=== PATIENT | female | born 1990 | race African-American/Black ===

== ENCOUNTER 2021-09-05 06:34 | Inpatient (IN) | payer BC, SELFPAY ==
[2021-09-05] VITALS (11 sets, daily range): BP systolic 124–151; BP diastolic 88–127; PULSE 114–148; RESP 28–35; TEMP 35.9–37.9; O2SAT 98–100; BMI 33.2
--- NOTE | ~2021-09-05 | CT_ITS ---
EXAMINATION: CT chest abdomen pelvis wo con DATE: 09/07/2021 11:24 CDT INDICATION: Gluteal abscess. TECHNIQUE: Computed tomography (CT) of the chest, abdomen, and pelvis was performed without intraveno us contrast. The dose-length product was 1854.47 mGy-cm. Automated exposure control and iterative rec onstruction technique were employed. COMPARISON: CT dated 08/26/2021 FINDINGS: CHEST CT: No thoracic lymphadenopathy. Heart size normal. No significant pleural or pericardial effusion. Mercedes l caliber aorta. There is a subcutaneous injection site left lower anterior abdominal wall. No endobr onchial lesions. No focal airspace consolidation. No suspicious pulmonary nodules or masses. ABDOMEN/PELVIS CT: There is heterogeneous appearance to both kidneys which appear enlarged, suspicious for pyelonephriti s. There are multiple areas of peripheral high density in both kidneys. The liver, spleen, pancreas, adrenal glands are unremarkable for noncontrast CT. Small amount of free fluid in the pelvis, likely physiologic. There is a left gluteal fluid collection measuring 7.7 x 2.7 x 8.6 cm, suspicious for abscess. IMPRESSION: 1. Persistent left medial gluteal abscess measuring 7.7 x 2.7 x 8.6 cm. 2: Heterogeneous appearance to both kidneys, suspicious for pyelonephritis P Reviewed, dictated and finalized at location A.
--- NOTE | ~2021-09-05 | XR_ITS ---
EXAMINATION: XR chest 1V portable EXAM DATE: 09/05/2021 07:25 INDICATION: Dyspnea and tachycardia, HX OF HTN/Diabetes. TECHNIQUE: Portable AP frontal chest x-ray was obtained. There is no prior study for comparison. FINDINGS: The lungs are clear. There are no pleural effusions. The cardiomediastinal silhouette is within normal limits. There is no pneumothorax suspected. The bones and soft tissues are unremarkab le. IMPRESSION: No acute cardiopulmonary findings. Reviewed, dictated and finalized at location A.
--- NOTE | ~2021-09-05 | CT_ITS ---
EXAMINATION: CTA chest PE abdomen pel DATE: 09/05/2021 08:47 INDICATION: Shortness of breath, tachycardia. Low abdominal pain. Gluteal abscess. TECHNIQUE: Computed tomography angiography (CTA) of the chest, abdomen and pelvis was performed with 100 mL Omnipaque-350 intravenous contrast timed to evaluate the pulmonary arteries. Coronal maximum i ntensity projection 3D-reconstructions were created by the technologist. Automated exposure control a nd iterative reconstruction technique were employed. Exam dose: 2435.93 mGy-cm total exam DLP. COMPARISON: 09/05/2021 portable AP chest FINDINGS: The patient refused to place arms above head, resulting in suboptimal imaging of the chest and abdomen. Due to artifact from the upper extremities and motion artifact, there is suboptimal visualization of the pulmonary arteries, particularly peripherally. No main pulmonary artery or lobar or proximal segm ental pulmonary artery embolism is evident on this limited examination. No thoracic aortic aneurysm or dissection is detected. Normal heart size. No pericardial or pleural e ffusion. No pulmonary infiltrate or consolidation or pulmonary mass lesion is evident. The gallbladder is distended. No gallbladder wall thickening or pericholecystic fluid or fat strandin g. No bile duct dilatation. No hepatic, splenic, pancreatic, and adrenal or renal space-occupying mas s lesion is detected. There are some patchy areas of diminished contrast enhancement of both kidneys, suggesting possible b ilateral pyelonephritis. Recommend clinical correlation The urinary bladder is unremarkable. No urinary tract calculus or hydroureteronephrosis. Approximately 3 cm right ovarian cyst. The uterus and adnexal areas are otherwise unremarkable. Normal caliber of the abdominal aorta. No intraperitoneal or retroperitoneal or pelvic mass lesion or adenopathy or ascites is noted. Normal appendix. No bowel obstruction, bowel wall thickening, pneumatosis or intraperitoneal free air . Up to 2.8 cm wide 6.5 cm AP dimension abscess in the medial left gluteal area. Included skeletal structures are unremarkable. IMPRESSION: No apparent central pulmonary embolism; limited evaluation of the pulmonary arteries due to superimposed upper extremities and motion artifact Medial left gluteal abscess Patchy contrast enhancement of both kidneys suggesting possible bilateral pyelonephritis; recommend c linical correlation 3 cm right ovarian cyst Normal appendix Reviewed, dictated and finalized at Location [facility]. Reviewed, dictated and finalized at location B. IMPRESSION: No apparent central pulmonary embolism; limited evaluation of the p ulmonary arteries due to superimposed upper extremities and motion artifact Medial left gluteal abscess Patchy contrast enhancement of both kidneys suggesting possible bilateral pyelo nephritis; recommend clinical correlation 3 cm right ovarian cyst Normal appendix
--- NOTE | 2021-09-05 06:58 | ECG_ITS ---
Measurements Intervals [place] Rate: 142 P: 67 ND: 143 QRS: 15 QRSD: 78 T: 48 QT: 328 QTc: 504 Interpretive Statements SINUS TACHYCARDIA BORDERLINE ST-T WAVE ABNORMALITY- ANTEROLAT/INF LEADS BASELINE WANDER- II, III, V1-V2 ABNORMAL ECG Electronically Signed On 09-05-2021 8:34:21 CDT by Douglas Rai D.O.
[2021-09-05 07:04] LABS: Glucose Point of Care 487 mg/dl (65-105)
[2021-09-05 07:09] LABS: Basophils Absolute Auto 0.1 K/mm3 (0.0-0.1); Basophils Percent Auto 0.6 % (0.2-1.2); Hematocrit 45.1 % (37.0-47.0); Hemoglobin 14.2 g/dL (12.0-15.0); Immature Granulocyte Absolute 0.31 K/mm3 (0.00-0.031); Immature Granulocyte Percent A 1.5 % (0-0.5); Lymphocytes Absolute Auto 2.66 K/mm3 (0.9-3.2); Lymphocytes Percent Auto 12.8 % (18.3-44.2); Mean Corpuscular HGB Conc 31.5 g/dl (32-36); Mean Corpuscular Hemoglobin 27.7 pg (26-34); Mean Corpuscular Volume 88.1 fl (80-100); Mean Platelet Volume 11.1 fl (7.4-10.4); Monocytes Absolute Auto 1.8 K/mm3 (0.1-0.6); Monocytes Percent Auto 8.7 % (2.6-8.5); Neutrophils Absolute Auto 15.9 K/mm3 (1.3-6.7); Neutrophils Percent Auto 76.4 % (45.5-73.1); Platelet Count Result 563 k/mm3 (150-375); Red Blood Count 5.12 M/mm3 (4.2-5.4); Red Cell Distribution Width 14.1 % (11.5-14.5); White Blood Count 20.8 K/mm3 (4.5-10.0)
[2021-09-05] MEDS: SODIUM CHLORIDE 0.9% IV 1,000 ML 999 ML IV CONT ×4 (07:23→11:03)
[2021-09-05 07:24] LABS: Alanine Aminotransferase 15 U/L (4-35); Albumin Level 4.8 g/dL (3.5-5.1); Alkaline Phosphatase 211 U/L (38-126); Aspartate Amino Transferase 19 U/L (14-36); Bilirubin,Total 0.4 mg/dL (0.2-1.3); Blood Urea Nitrogen 11 mg/dL (7-17); Calcium 9.9 mg/dL (8.4-10.2); Carbon Dioxide < 5 mmol/L (22-30); Chloride 102 mmol/L (98-107); Estimated CRCL calculation 75 ml/min; Estimated Glomerular Filt Rate > 60; Glucose 536 mg/dL (65-110); Potassium 4.6 mmol/L (3.4-5.0); Sodium 136 mmol/L (137-145)
[2021-09-05 07:28] LABS: Alveolar/Arterial O2 Gradient 429.2 mmHg; Base Excess ABG -29.6 mEq/l (+/-2.0); Fractional Inspired Oxygen 100 %; HCO3 ABG 1.8 mEq/l (22.0-26.0); Oxygen Content ABG 20.4 %vol (16.0-22.0); Oxygen Saturation ABG 99.2 % (95.0-100.0); Oxyhemoglobin 98.5 % THb (90.0-100.0); PO2 ABG 274.2 mmHg (80.0-100.0); PO2 FiO2 Ratio Arterial Blood 2.74 %; Total Hemoglobin 14.3 g/dL (12.0-18.0)
--- NOTE | 2021-09-05 07:28 | ED.SOB ---
HPI - SOB/Dyspnea General Chief Complaint: Shortness of Breath/Dyspnea Stated Complaint: dyspnea Time Seen by Provider: 09/05/21 06:52 Source: patient History of Present Illness HPI Narrative: Patient presents with shortness of breath. Reports she has been managing a boil on her left thigh for the past few days this morning she woke up and was really short of breath so she came to the ER for evaluation. She has not noted a fever, she reports she has been urinating more. She denies prior history of asthma or cardiac disease. She does report a history of diabetes. She has not noted cough. She does report diffuse chest tightness Related Data Allergies Allergy/AdvReac Type Severity Reaction Status Date / Time No Known Allergies Allergy Mild Verified 09/05/21 06:48 Review of Systems Review of Systems: CONSTITUTIONAL: Denies fever, chills, or sweats. EYES: Denies visual changes, redness, or discharge. ENT: Denies rhinorrhea, congestion, sore throat, or otalgia. CARDIOVASCULAR: Denies palpitations, or edema. RESPIRATORY: Denies cough GASTROINTESTINAL: Denies abdominal pain, nausea, vomiting, or diarrhea. GENITOURINARY: Denies dysuria or hematuria. SKIN: Denies rash or itching. MUSCULOSKELETAL: Denies back pain, joint pain, or myalgia. NEUROLOGIC: Denies headache, numbness, dizziness, or weakness. PSYCHIATRIC: Denies anxiety or depression. All systems reviewed & are unremarkable except as noted in HPI and below PMFSH Social History Social History Smoking status: Never smoker Alcohol intake: unknown Substance use: unknown Substance use type: does not use Spiritual care concerns: No Exam Narrative: GENERAL: Well-appearing, well-nourished, appears ill HEAD: Normocephalic, atraumatic. EYES: PERRLA and EOMI. ENT: Nares clear, no rhinorrhea or epistaxis. Mucous membranes moist. NECK: Supple. No masses. No JVD CHEST: Tachypnea clear to auscultation. No wheezes rales or rhonchi HEART: Regular tachycardia. No murmur heard. Normal peripheral pulses. ABDOMEN: Soft, nontender, nondistended, normal active bowel sounds. EXTREMITIES: Normal range of motion. No edema. SKIN: Warm, dry, no rash. NEURO: No focal deficits. Alert and oriented x3. PSYCH: Normal mood and affect. Course Reevaluation(s) Reevaluation #1: Patient remains tachycardic labs returned primary concern is for DKA. Patient does have an abscess in the left gluteal area with purulent material being drained. Patient started on antibiotics patient requires further therapies in the ICU. ICU consult hospitalist team page was placed Date: 09/05/21 Time: 08:03 Vital Signs Vital signs: Vital Signs Temperature 35.9 C L 09/05/21 06:34 Pulse Rate 148 H 09/05/21 06:34 Respiratory Rate 28 H 09/05/21 06:34 Blood Pressure 137/119 H 09/05/21 06:34 Pulse Oximetry 100 09/05/21 06:34 Temperature 36.4 C 09/05/21 12:00 Pulse Rate 131 H 09/05/21 12:00 Respiratory Rate 30 H 09/05/21 12:00 Blood Pressure 151/116 H 09/05/21 12:00 Pulse Oximetry 100 09/05/21 12:00 MDM - SOB/Dyspnea MDM Narrative Medical decision making narrative: Patient presented with shortness of breath. Patient clinically ill. Vital signs notable for tachypnea tachycardia. Labs and imaging obtained. Labs concerning for infection as well as DKA suspect patient's abscess was the triggering event. Patient was given approximately 3 L of fluid in the ER started on insulin with insulin bolus as well as given bicarb for her acidosis. Imaging obtained which showed abscess in the gluteal area. Patient was started on IV antibiotics. Patient admitted to the ICU for continued resuscitation and management. Patient was comfortable with inpatient plan. Lab Data Attestation: I reviewed the patient's lab results. Result diagrams: 09/05/21 07:04 09/05/21 09:55 Labs: Lab Results 09/05/21 09/05/2109/05
[2021-09-05 07:30] LABS: pH ABG 6.901 (7.350-7.450)
[2021-09-05 07:31] LABS: Device NON-REBREATHER MASK; Modified Allen's Test Unable to perform; PCO2 ABG 9.6 mmHg (35.0-45.0); Site Drawn RIGHT RADIAL
[2021-09-05] MEDS: SODIUM BICARBONATE 8.4% 50 MEQ/50 ML SYRINGE IV PUSH ×3 (07:41→16:07)
[2021-09-05] MEDS: INSULIN HUMAN REGULAR (*BKC) 100 UNITS/ML 10 UNITS IV PUSH (07:46)
[2021-09-05 08:41] LABS: Add Urine Microscopic? YES; Appearance Urine Clear (Clear); Bacteria Urine Trace /hpf; Bilirubin Urine Negative (Negative); Blood Urine 3+ (Negative); Color Urine Straw (Yellow); Glucose Urine UA 3+ mg/dL (Negative); Ketones Urine 2+ mg/dL (Negative); Leukocyte Esterase Ur Negative LEU/UL (Negative); Mucus Urine Rare /lpf; Nitrate Urine Negative (Negative); Protein Urine 3+ mg/dL (Negative); Specific Grav Ur 1.011 (1.001-1.035); Squamous Epithelial Cell Urine Occasional /hpf (Few); Urobilinogen Urine Negative mg/dL (<2.0)
[2021-09-05 09:20] LABS: Glucose Point of Care 408 mg/dl (65-105)
[2021-09-05 10:19] LABS: Lactic Acid Reflex 3.4 mmol/L (0.7-2.1)
[2021-09-05 10:20] LABS: Blood Urea Nitrogen 11 mg/dL (7-17); Calcium 8.8 mg/dL (8.4-10.2); Carbon Dioxide < 5 mmol/L (22-30); Chloride 110 mmol/L (98-107); Estimated CRCL calculation 89 ml/min; Estimated Glomerular Filt Rate > 60; Glucose 428 mg/dL (65-110); Potassium 4.5 mmol/L (3.4-5.0); Sodium 137 mmol/L (137-145)
[2021-09-05 10:21] LABS: Hemoglobin A1C 10.9 % (<5.7)
[2021-09-05 11:13] LABS: Glucose Point of Care 460 mg/dl (65-105)
[2021-09-05] MEDS: INSULIN HUMAN REGULAR (*BKC) 100 UNITS in SODIUM CHLORIDE 0.9% IV 99 ML 7.7 UNITS IV CONT (12:52)
[2021-09-05] MEDS: SODIUM CHLORIDE 0.9% IV 1,000 ML 150 ML IV CONT (12:53)
[2021-09-05] MEDS: LACTATED RINGERS 500 ML 999 ML IV CONT (12:54)
--- NOTE | 2021-09-05 13:00 | WPDCNINT ---
Assessment and Plan Assessment and plan (1) DKA (diabetic ketoacidosis): Qualifiers: Diabetes mellitus complication detail: without coma Diabetes mellitus type: due to underlying condition Qualified Code(s): E08.10 - Diabetes mellitus due to underlying condition with ketoacidosis without coma Code(s): E11.10 - Type 2 diabetes mellitus with ketoacidosis without coma Status: Acute Assessment and Plan: Patient presented with elevated blood sugars, metabolic acidosis, likely anion gap was elevated but not calculable due to CO2 being significantly low -patient given 3 L of IV fluids in the ER, additional IV fluid bolus was given in the ICU upon arrival -she was also given 1 amp of bicarb in the ER and in the ICU -currently tachycardic, tachypneic on room air with good O2 sats -patient has been started on insulin infusion per DKA protocol -will continue maintenance IV fluids per DKA protocol (2) Gluteal abscess: Code(s): L02.31 - Cutaneous abscess of buttock Status: Acute Assessment and Plan: Gluteal abscess as seen on the CT scan of the abdomen/pelvis, 2.8 cm x 6.5 cm -purulent drainage was seen in the ER, -surgery has been consulted for possible I&D -no gas was seen around the abscess. -continue vancomycin and Zosyn -blood cultures have been obtained and (3) Sepsis: Code(s): A41.9 - Sepsis, unspecified organism Status: Acute Assessment and Plan: Tachycardic, tachypneic, elevated WBC count with left gluteal abscess as a source of infection -continue vancomycin and Zosyn which were initiated on 09/05/2020 -blood cultures have been obtained -will obtain wound/abscess culture (4) Acute kidney injury: Code(s): N17.9 - Acute kidney failure, unspecified Status: Acute Assessment and Plan: Patient presented with acute kidney injury which is improving with IV fluids -continue to monitor urine output, renal function electrolytes Additional Plan Discussed with patient, updated with her condition and plan of care. She is aware that she is going to be on the insulin infusion. Surgery is also going to see her for the abscess if she needs any incision and drainage. Code status: Full code Critical care time spent: 44 minutes This dictation may have been done utilizing a voice recognition system. Attempts have been made to correct errors. However, there may be uncorrected grammatical, spelling, and recognition errors present. Due to a high probability of clinically significant, life threatening deterioration, the patient required my highest level of preparedness to intervene emergently and I personally spent this critical care time directly and personally managing the patient. This critical care time included obtaining a history; examining the patient; pulse oximetry; ordering and review of studies; arranging urgent treatment with development of a management plan; evaluation of patient's response to treatment; frequent reassessment; and discussions with other providers. It was exclusive of separately billable procedures and treating other patients and teaching time. Please see Assessment and Plan section and the rest of the note for further information on patient assessment and treatment [employer] Shift Commander Consult Note Consult date: 09/05/21 Time Seen: 12:21 Reason for consult: DKA, gluteal abscess, sepsis HPI: Maureen Mir is a 31 year old female with past medical history of diabetes presented the ED with complains shortness of breath, tachypnea, fevers, polyuria. In the ER patient was tachycardic, tachypneic. Her lab work was diagnostic for DKA and sepsis, WBC count of 20.8. Blood glucose of 536, metabolic acidosis with a CO2 of <5, anion gap probably significantly elevated but cannot be calculated. Lactic acid level of 3.4 hemoglobin A1c of 10.9. LFTs are within normal limits. CT scan of the chest and abdomen on 09/05/2021 did not reveal any pulmonary embolism, media
[2021-09-05 13:01] LABS: Reflex Lactic Acid Yes or No Add Lactic
--- NOTE | 2021-09-05 13:33 | PM.CNGS ---
Assessment and Plan Assessment and plan (1) Abscess: Code(s): L02.91 - Cutaneous abscess, unspecified Status: Acute Assessment and Plan: spontaneous drainage, no obvious fluctuance on exam, given DKA will opt for conservative treatment at this time c IV abx and local wound care, may need drainage in OR (2) DKA (diabetic ketoacidosis): Qualifiers: Diabetes mellitus complication detail: without coma Diabetes mellitus type: due to underlying condition Qualified Code(s): E08.10 - Diabetes mellitus due to underlying condition with ketoacidosis without coma Code(s): E11.10 - Type 2 diabetes mellitus with ketoacidosis without coma Status: Acute Assessment and Plan: insulin gtt, correct abnormalities c IV hydration, 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 Pt has very poorly controlled DM and reports it has been worsening over last few days. Pt reports she has boil on L buttocks that has worsened over last week. Pt reports area has been slightly better over last few days because in spontaneously has opened up and drained. Review of Systems Constitutional: Constitutional: Reports anorexia, Reports body ache(s), Reports chills, Reports fatigue, Denies increased appetite, Reports lethargy, Reports malaise, Reports poor appetite and Reports weakness Eyes: Eyes: Reports no additional eye complaints ENT: Reports system reviewed and no additional complaints, except as documented Cardiovascular: Cardiovascular: Reports no additional cardiovascular complaints Respiratory: Respiratory: Reports no additional respiratory complaints Gastrointestinal: Gastrointestinal: Reports no additional gastrointestinal complaints Genitourinary: Genitourinary: Reports no additional female genitourinary complaints Musculoskeletal: Musculoskeletal: Reports no additional musculoskeletal complaints and Reports as per HPI Integumentary/Breasts: Skin/Breast: Reports system reviewed and no additional complaints, except as docu and Reports as per HPI Neurologic: Reports system reviewed and no additional complaints, except as documented Psychiatric: Psychiatric: Reports no additional psychiatric complaints Endocrine: Endocrine: Reports as per HPI, Reports fatigue, Reports polydipsia and Reports polyuria Hematologic/Lymphatic: Hematologic/Lymphatic: Reports no additional hematologic/lymphatic complaints Allergic/Immunologic: Allergic/Immunologic: Reports no additional allergic/immunologic complaints PMFSH Social History Social History Smoking status: Never smoker Alcohol intake: unknown Substance use: unknown Substance use type: does not use Spiritual care concerns: No Comments PMH - DM PSH - no abdominal surgeries FH - DM, HTN, CAD SH - denies ETOH, tobacco Meds Home Medications and Allergies Allergies Allergy/AdvReac Type Severity Reaction Status Date / Time No Known Allergies Allergy Mild Verified 09/05/21 06:48 Vital Signs Vital Signs - 24 hr 09/05/21 06:34 09/05/21 06:41 09/05/21 07:33 Temperature 35.9 C L Pulse Rate 148 H 140 H Respiratory Rate 28 H Blood Pressure 137/119 H Pulse Oximetry 98 100 09/05/21 09:16 09/05/21 11:13 Temperature Pulse Rate 136 H 135 H Respiratory Rate 30 H 30 H Blood Pressure 136/106 H 138/98 H Pulse Oximetry 100 98 Exam Const: General: alert, awake, Physically active, acute distress mild, anxious and ill appearing Nutritional Appearance: obese Orientation/consciousness: patient oriented x3 Limitations: no limitations HENMT: Head: normal to inspection, normocephalic and atraumatic Ears: hearing grossly normal bilaterally General nose exam: Normal external nose present Face and sinus: larry
[2021-09-05 13:59] LABS: Glucose Point of Care 448 mg/dl (65-105)
[2021-09-05 13:59] LABS: Glucose Point of Care 337 mg/dl (65-105)
[2021-09-05 14:10] LABS: Glucose Point of Care 317 mg/dl (65-105)
[2021-09-05 14:18] LABS: Blood Urea Nitrogen 11 mg/dL (7-17); Calcium 8.2 mg/dL (8.4-10.2); Carbon Dioxide < 5 mmol/L (22-30); Chloride 115 mmol/L (98-107); Estimated CRCL calculation 82 ml/min; Estimated Glomerular Filt Rate > 60; Glucose 375 mg/dL (65-110); Potassium 4.9 mmol/L (3.4-5.0); Sodium 143 mmol/L (137-145)
[2021-09-05 14:19] LABS: Lactic Acid Reflex 2.4 mmol/L (0.7-2.1)
[2021-09-05] MEDS: LACTATED RINGERS 1,000 ML 999 ML IV CONT (15:07)
--- NOTE | 2021-09-05 15:30 | PM.IMHP ---
H&P: HPI History of Present Illness Date/Time: 09/05/21 15:30 Chief Complaint: Shortness of breath. Narrative: This is a 31-year-old female with diabetes who presented to the emergency department earlier today from home for evaluation of shortness of breath. She awoke from sleep this morning feeling short of breath and she was feeling extremely winded even without activity and thus she came in today for evaluation. On arrival to the emergency department she was tachypneic and tachycardic with an SpO2 of 100% on arrival to triage. CTA of the chest showed no apparent central pulmonary embolism though evaluation was a bit limited due to motion artifact in upper extremity positioning. She was not hypoxic on ABG however she was found to have a pretty profound metabolic acidosis with a pH of 6.901, pCO2 9.6, and a bicarb of 1.8. Her labs were consistent with diabetic ketoacidosis and she is being admitted in this setting. When questioned about recent infections, she mentions having a boil on her left upper thigh/buttock region and indeed CT showed evidence of left medial gluteal abscess. She has since been admitted to the ICU on insulin drip for DKA and she has also been started on antibiotics for the abscess mentioned above. At the time my evaluation she is feeling a bit better and she has no specific complaints. She denies high fever (100.8? yesterday), chills, sweats, nausea, vomiting, diarrhea, and dysuria. Her appetite has not been good for a couple of days, however. She denies sick contacts. She has not had blurry vision, polydipsia, or polyuria. [facility] Past Medical History Medical History (Updated 09/05/21 @ 23:40 by Sharon Alexander PA-C) Hypertension Type 1 diabetes mellitus Diagnosed at age 11. Surgical History Surgical History (Updated 09/05/21 @ 23:33 by Sharon Alexander PA-C) No significant past surgical history Family History Family History (Updated 09/05/21 @ 23:33 by Sharon Alexander PA-C) Other Diabetes mellitus Hypertension Social History Social History (Updated 09/05/21 @ 23:34 by Sharon Alexander PA-C) Social History: Surrogate decision maker: Riya Collazo, grandmother or Lauren Collazo, aunt. Code status: Full code. Smoking status: Never smoker Alcohol intake: never Substance use: never Substance use type: does not use Additional living arrangements comments: The patient lives with her aunt. Additional occupation/education comments: Unemployed currently. Meds Home Medications and Allergies Home Medications Medication Instructions Recorded Confirmed Type insulin NPH and regular human 40 unit SUBCUT BID 09/05/21 09/05/21 History [Novolin 70-30 FlexPen U-100] Allergies Allergy/AdvReac Type Severity Reaction Status Date / Time No Known Allergies Allergy Mild Verified 09/05/21 06:48 Vital Signs Vital Signs - 24 hr 09/05/21 06:34 09/05/21 06:41 09/05/21 07:33 Temperature 96.7 F L Pulse Rate 148 H 140 H Respiratory Rate 28 H Blood Pressure 137/119 H Pulse Oximetry 98 100 09/05/21 09:16 09/05/21 11:13 09/05/21 12:00 Temperature 97.6 F Pulse Rate 136 H 135 H 131 H Respiratory Rate 30 H 30 H 30 H Blood Pressure 136/106 H 138/98 H 151/116 H Pulse Oximetry 100 98 100 09/05/21 14:00 Temperature Pulse Rate 130 H Respiratory Rate 35 H Blood Pressure 148/127 H Pulse Oximetry 100 Exam Narrative: General: Moderately ill-appearing female sitting up in bed. Weight: 99 kg. BMI: 33.2. HEENT: PERRL, EOMI. Sclerae anicteric. Tacky mucous membranes. Neck: Supple. No lymphadenopathy. Respiratory: Tachypneic with mild conversational dyspnea, speaking in 4 to 5 word sentences. Lungs are clear to auscultation. Cardiovascular: Tachycardic with S1-S2. Gastrointestinal: Abdomen is soft, nontender, and nondistended with positive bowel sounds. Skin: Warm and dry. Large area of induration of the left buttock, mildly tender to palpation. No d
[2021-09-05 16:04] LABS: Glucose Point of Care 357 mg/dl (65-105)
[2021-09-05 16:04] LABS: Glucose Point of Care 274 mg/dl (65-105)
[2021-09-05 17:03] LABS: Glucose Point of Care 241 mg/dl (65-105)
--- NOTE | 2021-09-05 17:08 | PC.NURSE ---
1145- This patient, Maureen Mir, was admitted to Intensive Care Unit-1. Patient/family oriented to hospital policies and general routines including ID bracelet, bed and alarms, visiting hours, pain management, procedures, bathroom and other care routines, personal items, smoking policy, room service/diet, and visiting hours. Information on how to activate the Rapid Response Team has been discussed. Patient/Family are encouraged to report perceived risks to care and to ask questions if they do not understand what they are told or what they should do.
[2021-09-05 18:10] LABS: Glucose Point of Care 158 mg/dl (65-105)
[2021-09-05] MEDS: KCL 20 MEQ/D5/0.45% SOD CHL 1,000 ML 150 ML IV CONT (18:39)
[2021-09-05 19:02] LABS: Blood Urea Nitrogen 9 mg/dL (7-17); Calcium 9.2 mg/dL (8.4-10.2); Carbon Dioxide < 5 mmol/L (22-30); Chloride 117 mmol/L (98-107); Estimated CRCL calculation 89 ml/min; Estimated Glomerular Filt Rate > 60; Glucose 116 mg/dL (65-110); Potassium 3.6 mmol/L (3.4-5.0); Sodium 143 mmol/L (137-145)
[2021-09-05 19:08] LABS: Glucose Point of Care 130 mg/dl (65-105)
[2021-09-05 20:13] LABS: Glucose Point of Care 147 mg/dl (65-105)
[2021-09-05 21:08] LABS: Glucose Point of Care 152 mg/dl (65-105)
[2021-09-05] MEDS: INSULIN HUMAN REGULAR (*BKC) 100 UNITS in SODIUM CHLORIDE 0.9% IV 99 ML 5.5 UNITS IV CONT (22:17)
[2021-09-05 22:28] LABS: Glucose Point of Care 139 mg/dl (65-105)
[2021-09-05 23:22] LABS: Blood Urea Nitrogen 9 mg/dL (7-17); Calcium 9.2 mg/dL (8.4-10.2); Carbon Dioxide < 5 mmol/L (22-30); Chloride 117 mmol/L (98-107); Estimated CRCL calculation 89 ml/min; Estimated Glomerular Filt Rate > 60; Glucose 138 mg/dL (65-110); Potassium 3.9 mmol/L (3.4-5.0); Sodium 142 mmol/L (137-145)
[2021-09-05 23:30] LABS: Glucose Point of Care 204 mg/dl (65-105)
[2021-09-06] VITALS (17 sets, daily range): BP systolic 94–132; BP diastolic 63–91; PULSE 105–133; RESP 19–36; TEMP 36.8–38; O2SAT 99–100
[2021-09-06 00:23] LABS: Glucose Point of Care 192 mg/dl (65-105)
[2021-09-06 01:07] LABS: Glucose Point of Care 172 mg/dl (65-105)
[2021-09-06] MEDS: KCL 20 MEQ/D5/0.45% SOD CHL 1,000 ML 150 ML IV CONT ×4 (01:20→21:18)
[2021-09-06 02:37] LABS: Glucose Point of Care 121 mg/dl (65-105)
[2021-09-06 03:12] LABS: Glucose Point of Care 141 mg/dl (65-105)
[2021-09-06 04:07] LABS: Glucose Point of Care 120 mg/dl (65-105)
[2021-09-06 05:21] LABS: Glucose Point of Care 163 mg/dl (65-105)
[2021-09-06 05:33] LABS: Basophils Percent Auto 0.3 % (0.2-1.2); Hematocrit 41.2 % (37.0-47.0); Immature Granulocyte Absolute 0.09 K/mm3 (0.00-0.031); Immature Granulocyte Percent A 0.6 % (0-0.5); Lymphocytes Percent Auto 6.3 % (18.3-44.2); Mean Corpuscular Hemoglobin 28.6 pg (26-34); Mean Corpuscular Volume 84.1 fl (80-100); Mean Platelet Volume 10.8 fl (7.4-10.4); Monocytes Percent Auto 6.8 % (2.6-8.5); Neutrophils Absolute Auto 12.3 K/mm3 (1.3-6.7); Platelet Count Result 424 k/mm3 (150-375); Red Cell Distribution Width 13.9 % (11.5-14.5); White Blood Count 14.3 K/mm3 (4.5-10.0)
[2021-09-06 06:05] LABS: Lactic Acid Reflex 1.8 mmol/L (0.7-2.1)
[2021-09-06 06:08] LABS: Glucose Point of Care 136 mg/dl (65-105)
[2021-09-06 06:17] LABS: Alanine Aminotransferase 14 U/L (4-35); Alkaline Phosphatase 143 U/L (38-126); Anion Gap 18 mmol/L (8-16); Aspartate Amino Transferase 22 U/L (14-36); Bilirubin,Total 0.4 mg/dL (0.2-1.3); Blood Urea Nitrogen 8 mg/dL (7-17); CRP 20.2 mg/dL (<1.0); Calcium 9.4 mg/dL (8.4-10.2); Carbon Dioxide 7 mmol/L (22-30); Chloride 116 mmol/L (98-107); Estimated CRCL calculation 90 ml/min; Estimated Glomerular Filt Rate > 60; Glucose 127 mg/dL (65-110); Magnesium 1.8 mg/dL (1.6-2.3); Phosphorus 1.2 mg/dL (2.5-4.5); Potassium 3.6 mmol/L (3.4-5.0); Sodium 141 mmol/L (137-145)
[2021-09-06 07:09] LABS: Glucose Point of Care 141 mg/dl (65-105)
[2021-09-06 08:14] LABS: Glucose Point of Care 134 mg/dl (65-105)
[2021-09-06] MEDS: HYDROmorphone HCL INJ (*CRX) 1 MG/ML SYR 0.5 MG IV PUSH (08:16)
[2021-09-06] MEDS: POTASSIUM PHOS,M-BASIC-D-BASIC 20 MMOL in SODIUM CHLORIDE 0.9% IV 250 ML 64.17 MMOL IVPB (08:21)
[2021-09-06] MEDS: ENOXAPARIN 40 MG/0.4 ML SYRINGE SUB-Q (09:13)
[2021-09-06 09:16] LABS: Glucose Point of Care 159 mg/dl (65-105)
--- NOTE | 2021-09-06 09:42 | WPDINTPN ---
Progress Note: A&P Assessment and Plan (1) DKA (diabetic ketoacidosis): Qualifiers: Diabetes mellitus complication detail: without coma Diabetes mellitus type: due to underlying condition Qualified Code(s): E08.10 - Diabetes mellitus due to underlying condition with ketoacidosis without coma Code(s): E11.10 - Type 2 diabetes mellitus with ketoacidosis without coma Status: Acute Assessment and Plan: Patient presented with elevated blood sugars, metabolic acidosis, likely anion gap was elevated but not calculable due to CO2 being significantly low -patient received adequate amount of fluids, roughly on 5 L of IV fluid in bolus plus maintenance IV fluids -patient also received sodium bicarbonate as a pH was 6.9 -remains on insulin infusion per DKA protocol -anion gap remains elevated -Hemoglobin A1c is 10.9 this admission (2) Gluteal abscess: Code(s): L02.31 - Cutaneous abscess of buttock Status: Acute Assessment and Plan: Gluteal abscess as seen on the CT scan of the abdomen/pelvis, 2.8 cm x 6.5 cm -purulent drainage was seen in the ER, -surgery has been consulted for possible I&D -no gas was seen around the abscess. -continue vancomycin and Zosyn -blood cultures have been obtained and (3) Sepsis: Code(s): A41.9 - Sepsis, unspecified organism Status: Acute Assessment and Plan: Tachycardic, tachypneic, elevated WBC count with left gluteal abscess as a source of infection -continue vancomycin and Zosyn which were initiated on 09/05/2020 09/05/2021: Blood cultures negative x2 -culture of the abscess is pending (4) Acute kidney injury: Code(s): N17.9 - Acute kidney failure, unspecified Status: Acute Assessment and Plan: RESOLVED. Down to 1.0 Patient presented with acute kidney injury which is improving with IV fluids -continue to monitor urine output, renal function electrolytes Additional Plan Discussed with patient, updated with her condition and plan of care. She is aware that she is going to be on the insulin infusion. Code status: Full code Critical care time spent: 32 minutes This dictation may have been done utilizing a voice recognition system. Attempts have been made to correct errors. However, there may be uncorrected grammatical, spelling, and recognition errors present. Due to a high probability of clinically significant, life threatening deterioration, the patient required my highest level of preparedness to intervene emergently and I personally spent this critical care time directly and personally managing the patient. This critical care time included obtaining a history; examining the patient; pulse oximetry; ordering and review of studies; arranging urgent treatment with development of a management plan; evaluation of patient's response to treatment; frequent reassessment; and discussions with other providers. It was exclusive of separately billable procedures and treating other patients and teaching time. Please see Assessment and Plan section and the rest of the note for further information on patient assessment and treatment Subjective Date/time seen: 09/06/21 09:42 Interval history: Reason for consult: Diabetic ketoacidosis, gluteal abscess, sepsis 09/06/2021: Patient seen and examined this morning, is more awake, oriented to answer questions, heart rate is better, urine output is very guarded, patient on room air with good O2 sats. Complains of pain at the site of the abscess. Denies shortness of breath, chest pain, abdominal pain, nausea vomiting at this time. Patient is hemodynamically stable, afebrile Review of Systems Review of Systems: All systems reviewed & are unremarkable except as noted in HPI and below Exam Const: General: comfortable and no acute distress HENMT: Mouth: Yes dry mucous membranes Eyes: Sclera: sclerae normal Pupils: Equal, round and reactive pupils present Neck: Neck: supple Thyr
--- NOTE | 2021-09-06 10:19 | PM.PNGS ---
Progress Note: A&P Assessment and Plan (1) Gluteal abscess: Code(s): L02.31 - Cutaneous abscess of buttock Status: Acute Assessment and Plan: better today, cont local wound care, abx (2) Sepsis: Code(s): A41.9 - Sepsis, unspecified organism Status: Acute Assessment and Plan: resolving, cont abx (3) Diabetic ketoacidosis: Code(s): E11.10 - Type 2 diabetes mellitus with ketoacidosis without coma Status: Acute Assessment and Plan: still on insulin gtt, mgmt per primary team Subjective Subjective Date/Time Seen: 09/06/21 10:19 feels a little better today, still weak, fatigued, reports mild L buttock soreness Review of Systems Review of Systems: All systems reviewed & are unremarkable except as noted in HPI and below Exam Const: General: comfortable, no acute distress and ill appearing Nutritional Appearance: obese Orientation/consciousness: patient oriented x3 Resp: Effort & Inspection: normal respiratory effort Auscultation: clear to auscultation bilaterally Cardio: Rate: tachycardic Rhythm: regular rhythm GI: Inspection: normal to inspection GI Palp: Yes Soft to palpation and No Tenderness to palpation present (GI) Skin: Other: L buttock abscess - no drainage, decreased induration, mild TTP Objective Data Vital Signs Vital Signs: Vital Signs - 24 hr 09/05/21 11:13 09/05/21 12:00 09/05/21 14:00 Temperature 36.4 C Pulse Rate 135 H 131 H 130 H Respiratory Rate 30 H 30 H 35 H Blood Pressure 138/98 H 151/116 H 148/127 H Pulse Oximetry 98 100 100 09/05/21 16:00 09/05/21 18:00 09/05/21 20:00 Temperature 36.8 C 37.9 C H Pulse Rate 134 H 118 H 121 H Respiratory Rate 35 H 28 H 32 H Blood Pressure 151/108 H 143/99 H 124/93 H Pulse Oximetry 100 100 100 09/05/21 22:00 09/06/21 00:00 09/06/21 02:00 Temperature 38.0 C H Pulse Rate 117 H 108 H 111 H Respiratory Rate 33 H 29 H 30 H Blood Pressure 133/88 121/79 126/80 Pulse Oximetry 100 99 99 09/06/21 04:00 09/06/21 06:00 09/06/21 08:00 Temperature 37.5 C 36.8 C Pulse Rate 106 H 112 H 105 H Respiratory Rate 28 H 30 H 30 H Blood Pressure 132/89 120/85 123/91 H Pulse Oximetry 100 99 100 Intake/Output Intake/Output: Intake & Output 09/03/21 09/04/21 09/05/21 09/06/21 23:59 23:59 23:59 23:59 Intake Total 5450 2506 Output Total 4800 1700 Balance 650 806 Meds/Results Medications: Active Medications Generic Name Dose Route Start Last Admin Trade Name Freq PRN Reason Stop Dose Admin Dextrose 12.5 gm 09/05/21 07:25 Dextrose 50% 25 Gm/50 Ml Syringe IV PUSH PRN PRN Hypoglycemia Protocol Enoxaparin Sodium 40 mg 09/06/21 09:00 09/06/21 09:13 Enoxaparin 40 Mg/0.4 Ml Syringe SUB-Q 40 mg DAILY DOMINIQUE Administration Glucagon 1 mg 09/05/21 07:25 Glucagon For Inj 1 Mg Vial IM PRN PRN Hypoglycemia Protocol Glucose 15 gm 09/05/21 07:25 Glucose Oral Gel 15 Gm Of Glucse In 37.5 Gm Tube PO PRN PRN Hypoglycemia Protocol Hydromorphone HCl 0.5 mg 09/05/21 08:58 09/06/21 08:16 Hydromorphone Hcl Inj (*Crx) 1 Mg/Ml Syr IV PUSH 0.5 mg Q4H PRN Administration Pain Rated 7-10 Potassium Phosphate 20 mmol/ 256.6667 mls @ 64.167 mls/hr 09/06/21 07:45 09/06/21 08:26 Sodium Chloride IVPB 09/06/21 11:44 Infused ONCE ONE Infusion Potassium Chloride/Dextrose/Sod Cl 1,000 mls @ 150 mls/hr 09/05/21 07:25 09/06/21 08:13 Kcl 20 Meq/D5/0.45% Sod Chl IV CONT 150 mls/hr .Q6H40M DOMINIQUE Administration Insulin Human Regular 100 100 mls @ 7.9 mls/hr 09/05/21 07:25 09/06/21 09:27 units/ Sodium Chloride IV CONT 7.92 units/hr .[id number] DOMINIQUE 7.92 mls/hr Titration Protocol 7.9 UNITS/HR Dextrose 1,000 mls @ 100 mls/hr 09/05/21 07:25 Dextrose 5% 1,000 Ml IVPB PRN PRN Hypoglycemia Protocol Piperacillin/Tazobactam/Dextrose 3.375 gm in 50 mls @ 100 mls/hr 09/05/21
[2021-09-06 10:24] LABS: Glucose Point of Care 144 mg/dl (65-105)
[2021-09-06 10:28] LABS: Anion Gap 17 mmol/L (8-16); Blood Urea Nitrogen 8 mg/dL (7-17); Calcium 9.5 mg/dL (8.4-10.2); Carbon Dioxide 7 mmol/L (22-30); Chloride 118 mmol/L (98-107); Estimated CRCL calculation 90 ml/min; Estimated Glomerular Filt Rate > 60; Glucose 143 mg/dL (65-110); Potassium 3.6 mmol/L (3.4-5.0); Sodium 142 mmol/L (137-145)
--- NOTE | 2021-09-06 10:56 | PCDIET ---
Nutrition Follow-Up Complete: Nutrition Diagnosis: Altered nutrition related labs related to diabetes mellitus as evidenced by HgbA1C of 10.9%. Nutrition Goal: Patient to meet estimated nutritional needs. Goal not met. Patient remains NPO on insulin drip. Abscess slightly improved, per surgery. Last recorded weight is 99.7 kg which is stable. Bowel Motility: No documented BM as of yet. Labs Reviewed: Glu (127), PO4 (1.2) Meds Noted: IV Insulin, Dilaudid, Zosyn, K-Phos, Vancomycin, D5/0.45NS with 20mEq KCl at 150mL/hr Additional Notes: Will continue to monitor with same goal. Nutrition Monitoring and Evaluation: Follow up every 3 days.
[2021-09-06 11:21] LABS: Glucose Point of Care 147 mg/dl (65-105)
[2021-09-06 11:38] LABS: INR 1.2; Prothrombin Time 15.3 Seconds (11.1-14.7)
[2021-09-06 11:40] LABS: Partial Thromboplastin Time 33.2 SECONDS (22.3-36.8)
[2021-09-06] MEDS: INSULIN HUMAN REGULAR (*BKC) 100 UNITS in SODIUM CHLORIDE 0.9% IV 99 ML 7 UNITS IV CONT (12:04)
[2021-09-06 12:28] LABS: Glucose Point of Care 157 mg/dl (65-105)
[2021-09-06 13:35] LABS: Glucose Point of Care 161 mg/dl (65-105)
[2021-09-06 13:51] LABS: Anion Gap 14 mmol/L (8-16); Blood Urea Nitrogen 7 mg/dL (7-17); Calcium 9.1 mg/dL (8.4-10.2); Carbon Dioxide 11 mmol/L (22-30); Chloride 117 mmol/L (98-107); Estimated CRCL calculation 90 ml/min; Estimated Glomerular Filt Rate > 60; Glucose 163 mg/dL (65-110); Potassium 3.1 mmol/L (3.4-5.0); Sodium 142 mmol/L (137-145)
[2021-09-06] MEDS: POTASSIUM CHLORIDE 20 MEQ PACKET (FOR LIQUID) 40 MEQ PO (14:08)
[2021-09-06 14:18] LABS: Glucose Point of Care 146 mg/dl (65-105)
[2021-09-06 15:27] LABS: Glucose Point of Care 102 mg/dl (65-105)
[2021-09-06 16:38] LABS: Glucose Point of Care 106 mg/dl (65-105)
[2021-09-06 17:37] LABS: Glucose Point of Care 120 mg/dl (65-105)
--- NOTE | 2021-09-06 17:55 | PM.IMPN ---
Progress Note: A&P Assessment and Plan (1) Diabetic ketoacidosis: Code(s): E11.10 - Type 2 diabetes mellitus with ketoacidosis without coma Status: Acute (2) Sepsis: Code(s): A41.9 - Sepsis, unspecified organism Status: Acute (3) Gluteal abscess: Code(s): L02.31 - Cutaneous abscess of buttock Status: Acute (4) Acute kidney injury: Code(s): N17.9 - Acute kidney failure, unspecified Status: Acute (5) Hypertension: Code(s): I10 - Essential (primary) hypertension Status: Acute (6) Type 1 diabetes mellitus: Code(s): E10.9 - Type 1 diabetes mellitus without complications Status: Acute Additional Plan dka management per icu team Sb Olson for gluteal abscess, cultures pending Subjective Date/time seen: 09/06/21 17:55 somehwat more alert than previous days per pt. Review of Systems Review of Systems: All systems reviewed & are unremarkable except as noted in HPI and below Exam Const: General: no acute distress Neck: Neck: no JVD Resp: Effort & Inspection: normal respiratory effort Auscultation: clear to auscultation bilaterally Cardio: Rate: regular rate Rhythm: regular rhythm GI: GI Palp: Yes Soft to palpation and No Tenderness to palpation present (GI) Objective Data Vital Signs Vital Signs: Vital Signs - 24 hr 09/05/21 18:00 09/05/21 20:00 09/05/21 22:00 Temperature 100.2 F H Pulse Rate 118 H 121 H 117 H Respiratory Rate 28 H 32 H 33 H Blood Pressure 143/99 H 124/93 H 133/88 Pulse Oximetry 100 100 100 09/06/21 00:00 09/06/21 02:00 09/06/21 04:00 Temperature 100.4 F H 99.5 F Pulse Rate 108 H 111 H 106 H Respiratory Rate 29 H 30 H 28 H Blood Pressure 121/79 126/80 132/89 Pulse Oximetry 99 99 100 09/06/21 06:00 09/06/21 08:00 09/06/21 10:00 Temperature 98.3 F Pulse Rate 112 H 105 H 111 H Respiratory Rate 30 H 30 H 25 H Blood Pressure 120/85 123/91 H 94/65 L Pulse Oximetry 99 100 99 09/06/21 12:00 09/06/21 14:00 09/06/21 15:29 Temperature 99 F 98.4 F Pulse Rate 112 H 116 H 133 H Respiratory Rate 31 H 26 H 19 Blood Pressure 102/75 128/75 118/77 Pulse Oximetry 100 100 100 09/06/21 15:31 09/06/21 16:00 09/06/21 17:44 Temperature Pulse Rate 121 H 116 H Respiratory Rate Blood Pressure Pulse Oximetry 100 Intake/Output Intake/Output: Intake & Output 09/03/21 09/04/21 09/05/21 09/06/21 23:59 23:59 23:59 23:59 Intake Total 5450 4306 Output Total 4800 3400 Balance 650 906 Meds/Results Medications: Active Medications Generic Name Dose Route Start Last Admin Trade Name Freq PRN Reason Stop Dose Admin Dextrose 12.5 gm 09/05/21 07:25 Dextrose 50% 25 Gm/50 Ml Syringe IV PUSH PRN PRN Hypoglycemia Protocol Enoxaparin Sodium 40 mg 09/06/21 09:00 09/06/21 09:13 Enoxaparin 40 Mg/0.4 Ml Syringe SUB-Q 40 mg DAILY DOMINIQUE Administration Glucagon 1 mg 09/05/21 07:25 Glucagon For Inj 1 Mg Vial IM PRN PRN Hypoglycemia Protocol Glucose 15 gm 09/05/21 07:25 Glucose Oral Gel 15 Gm Of Glucse In 37.5 Gm Tube PO PRN PRN Hypoglycemia Protocol Hydromorphone HCl 0.5 mg 09/05/21 08:58 09/06/21 08:16 Hydromorphone Hcl Inj (*Crx) 1 Mg/Ml Syr IV PUSH 0.5 mg Q4H PRN Administration Pain Rated 7-10 Potassium Chloride/Dextrose/Sod Cl 1,000 mls @ 150 mls/hr 09/05/21 07:25 09/06/21 14:08 Kcl 20 Meq/D5/0.45% Sod Chl IV CONT 150 mls/hr .Q6H40M DOMINIQUE Administration Insulin Human Regular 100 100 mls @ 4.8 mls/hr 09/05/21 07:25 09/06/21 17:37 units/ Sodium Chloride IV CONT 4.8 units/hr .[id number] DOMINIQUE 4.8 mls/hr Titration Protocol 4.8 UNITS/HR Dextrose 1,000 mls @ 100 mls/hr 09/05/21 07:25 Dextrose 5% 1,000 Ml IVPB PRN PRN Hypoglycemia Protocol Piperacillin/Tazobactam/Dextrose 3.375 gm in 50 mls @ 100 mls/hr 09/05/21 13:00 09/06/21 17:36 Zosyn 3.375 Gm/D5
[2021-09-06 18:32] LABS: Glucose Point of Care 129 mg/dl (65-105)
[2021-09-06 18:50] LABS: Anion Gap 12 mmol/L (8-16); Blood Urea Nitrogen 6 mg/dL (7-17); Calcium 9.5 mg/dL (8.4-10.2); Carbon Dioxide 12 mmol/L (22-30); Chloride 119 mmol/L (98-107); Estimated CRCL calculation 90 ml/min; Estimated Glomerular Filt Rate > 60; Glucose 141 mg/dL (65-110); Potassium 3.3 mmol/L (3.4-5.0); Sodium 143 mmol/L (137-145)
[2021-09-06 19:47] LABS: Glucose Point of Care 111 mg/dl (65-105)
[2021-09-06 21:17] LABS: Glucose Point of Care 113 mg/dl (65-105)
[2021-09-06 22:11] LABS: Vancomycin Trough 16.3 ug/mL (10.0-20.0)
[2021-09-06 22:28] LABS: Glucose Point of Care 155 mg/dl (65-105)
[2021-09-06 23:31] LABS: Glucose Point of Care 199 mg/dl (65-105)
[2021-09-07] VITALS (15 sets, daily range): BP systolic 102–150; BP diastolic 64–100; PULSE 108–136; RESP 18–30; TEMP 36.1–36.8; O2SAT 99–100
[2021-09-07 00:39] LABS: Blood Urea Nitrogen 6 mg/dL (7-17); Calcium 10.4 mg/dL (8.4-10.2); Carbon Dioxide < 5 mmol/L (22-30); Chloride 126 mmol/L (98-107); Estimated CRCL calculation 76 ml/min; Estimated Glomerular Filt Rate > 60; Glucose 226 mg/dL (65-110); Sodium 149 mmol/L (137-145)
[2021-09-07 00:57] LABS: Glucose Point of Care 110 mg/dl (65-105)
[2021-09-07 02:25] LABS: Glucose Point of Care 71 mg/dl (65-105)
[2021-09-07 03:11] LABS: Basophils Percent Auto 0.4 % (0.2-1.2); Eosinophils Percent Auto 0.1 % (0-4.4); Hematocrit 39.7 % (37.0-47.0); Hemoglobin 13.6 g/dL (12.0-15.0); Immature Granulocyte Absolute 0.05 K/mm3 (0.00-0.031); Immature Granulocyte Percent A 0.5 % (0-0.5); Lymphocytes Percent Auto 15.5 % (18.3-44.2); Mean Corpuscular HGB Conc 34.3 g/dl (32-36); Mean Corpuscular Volume 81.9 fl (80-100); Mean Platelet Volume 10.5 fl (7.4-10.4); Monocytes Absolute Auto 1.3 K/mm3 (0.1-0.6); Monocytes Percent Auto 13.4 % (2.6-8.5); Neutrophils Absolute Auto 6.8 K/mm3 (1.3-6.7); Neutrophils Percent Auto 70.1 % (45.5-73.1); Nucleated Red Blood Cells Perc 0.2 % (0.0-0.2); Platelet Count Result 377 k/mm3 (150-375); Red Blood Count 4.85 M/mm3 (4.2-5.4); White Blood Count 9.7 K/mm3 (4.5-10.0)
[2021-09-07 03:55] LABS: Alanine Aminotransferase 63 U/L (4-35); Albumin Level 3.6 g/dL (3.5-5.1); Alkaline Phosphatase 156 U/L (38-126); Anion Gap 15 mmol/L (8-16); Aspartate Amino Transferase 85 U/L (14-36); Bilirubin,Total 0.6 mg/dL (0.2-1.3); Blood Urea Nitrogen 5 mg/dL (7-17); Calcium 9.6 mg/dL (8.4-10.2); Carbon Dioxide 10 mmol/L (22-30); Chloride 119 mmol/L (98-107); Estimated CRCL calculation 82 ml/min; Estimated Glomerular Filt Rate > 60; Glucose 107 mg/dL (65-110); Magnesium 1.6 mg/dL (1.6-2.3); Phosphorus 1.4 mg/dL (2.5-4.5); Potassium 3.3 mmol/L (3.4-5.0); Sodium 144 mmol/L (137-145)
[2021-09-07 04:10] LABS: Glucose Point of Care 183 mg/dl (65-105)
[2021-09-07] MEDS: KCL 20 MEQ/D5/0.45% SOD CHL 1,000 ML 150 ML IV CONT ×3 (05:00→23:51)
[2021-09-07 05:18] LABS: Glucose Point of Care 267 mg/dl (65-105)
[2021-09-07 06:25] LABS: Glucose Point of Care 280 mg/dl (65-105)
[2021-09-07] MEDS: SODIUM CHLORIDE 0.9% IV 1,000 ML 150 ML IV CONT (06:50)
[2021-09-07 07:43] LABS: Anion Gap 15 mmol/L (8-16); Blood Urea Nitrogen 5 mg/dL (7-17); Calcium 9.5 mg/dL (8.4-10.2); Carbon Dioxide 11 mmol/L (22-30); Chloride 116 mmol/L (98-107); Estimated CRCL calculation 76 ml/min; Estimated Glomerular Filt Rate > 60; Glucose 228 mg/dL (65-110); Potassium 3.1 mmol/L (3.4-5.0); Sodium 142 mmol/L (137-145)
[2021-09-07] MEDS: INSULIN HUMAN REGULAR (*BKC) 100 UNITS in SODIUM CHLORIDE 0.9% IV 99 ML IV CONT (08:28)
[2021-09-07] MEDS: ENOXAPARIN 40 MG/0.4 ML SYRINGE SUB-Q (08:30)
[2021-09-07] MEDS: LACTATED RINGERS 500 ML 999 ML IV CONT (08:30)
[2021-09-07] MEDS: POTASSIUM PHOS,M-BASIC-D-BASIC 40 MMOL in SODIUM CHLORIDE 0.9% IV 250 ML 43.89 MMOL IVPB (09:32)
[2021-09-07 09:44] LABS: Glucose Point of Care 122 mg/dl (65-105)
[2021-09-07 09:44] LABS: Glucose Point of Care 113 mg/dl (65-105)
--- NOTE | 2021-09-07 09:46 | WPDINTPN ---
Progress Note: A&P Assessment and Plan (1) DKA (diabetic ketoacidosis): Qualifiers: Diabetes mellitus complication detail: without coma Diabetes mellitus type: due to underlying condition Qualified Code(s): E08.10 - Diabetes mellitus due to underlying condition with ketoacidosis without coma Code(s): E11.10 - Type 2 diabetes mellitus with ketoacidosis without coma Status: Acute Assessment and Plan: Patient presented with elevated blood sugars, metabolic acidosis, likely anion gap was elevated but not calculable due to CO2 being significantly low -patient received adequate amount of fluids, roughly on 5 L of IV fluid in bolus plus maintenance IV fluids -patient also received sodium bicarbonate as a pH was 6.9 -continue insulin infusion per DKA protocol -anion gap remains elevated, will give additional IV fluid bolus as patient has had a very good urine output -Hemoglobin A1c is 10.9 this admission (2) Gluteal abscess: Code(s): L02.31 - Cutaneous abscess of buttock Status: Acute Assessment and Plan: Gluteal abscess as seen on the CT scan of the abdomen/pelvis, 2.8 cm x 6.5 cm with no gas seen on the abscess -purulent drainage was seen in the ER, -surgery has been consulted for possible I&D -discussed with surgeon, WBC count has normalized. Given her DKA is not improving surgery recommended repeating the CT scan of the abdomen and pelvis to assess gluteal abscess which may require I&D. -continue vancomycin and Zosyn (3) Sepsis: Code(s): A41.9 - Sepsis, unspecified organism Status: Acute Assessment and Plan: Tachycardic, tachypneic, elevated WBC count with left gluteal abscess as a source of infection -continue vancomycin and Zosyn which were initiated on 09/05/2020 09/05/2021: Blood cultures negative x2 -culture of the abscess is pending (4) Acute kidney injury: Code(s): N17.9 - Acute kidney failure, unspecified Status: Acute Assessment and Plan: RESOLVED. Patient presented with acute kidney injury which is improving with IV fluids -continue to monitor urine output, renal function electrolytes Additional Plan Discussed with patient, updated with her condition and plan of care. She is aware that she is going to be on the insulin infusion. She also is aware that she will be getting another CT scan to assess the gluteal abscess Code status: Full code Critical care time spent: 32 minutes Discussed with surgery This dictation may have been done utilizing a voice recognition system. Attempts have been made to correct errors. However, there may be uncorrected grammatical, spelling, and recognition errors present. Due to a high probability of clinically significant, life threatening deterioration, the patient required my highest level of preparedness to intervene emergently and I personally spent this critical care time directly and personally managing the patient. This critical care time included obtaining a history; examining the patient; pulse oximetry; ordering and review of studies; arranging urgent treatment with development of a management plan; evaluation of patient's response to treatment; frequent reassessment; and discussions with other providers. It was exclusive of separately billable procedures and treating other patients and teaching time. Please see Assessment and Plan section and the rest of the note for further information on patient assessment and treatment Subjective Date/time seen: 09/07/21 09:46 Interval history: Reason for consult: Diabetic ketoacidosis, gluteal abscess, sepsis 09/07/2021: Patient is awake, alert, answers to questions and follows simple commands. Remains on room air with good O2 sats. Patient remains tachycardic, blood pressures are stable, tachypnea has resolved. Urine output has been adequate. Patient denies any chest pain, shortness of breath, abdominal pain, nausea, vomiting. Planes of pain at the site o
--- NOTE | 2021-09-07 10:18 | PM.PNGS ---
Progress Note: A&P Assessment and Plan (1) Gluteal abscess: Code(s): L02.31 - Cutaneous abscess of buttock Status: Acute Assessment and Plan: local wound care, abx, will get CT to reassess deeper undrained pocket (2) Diabetic ketoacidosis: Code(s): E11.10 - Type 2 diabetes mellitus with ketoacidosis without coma Status: Acute Assessment and Plan: worsening despite insulin gtt, resus, cont mgmt per primary team Subjective Subjective Date/Time Seen: 09/07/21 10:18 no acute issues, still c worsening DKA, pt reports some tenderness and drainage in L buttock Review of Systems Review of Systems: All systems reviewed & are unremarkable except as noted in HPI and below Exam Const: General: cooperative and no acute distress Nutritional Appearance: obese Orientation/consciousness: patient oriented x3 Resp: Effort & Inspection: normal respiratory effort Auscultation: clear to auscultation bilaterally Cardio: Rate: tachycardic Rhythm: regular rhythm GI: Inspection: normal to inspection and non-distended GI Palp: Yes Soft to palpation and No Tenderness to palpation present (GI) Skin: Other: L gluteal abscess - some blistering of overlying skin c serous drainage, area c mild induration, mild TTP, no flutuance appreciated Neuro: General: patient oriented x3 Objective Data Vital Signs Vital Signs: Vital Signs - 24 hr 09/06/21 12:00 09/06/21 14:00 09/06/21 15:29 Temperature 37.2 C 36.9 C Pulse Rate 112 H 116 H 133 H Respiratory Rate 31 H 26 H 19 Blood Pressure 102/75 128/75 118/77 Pulse Oximetry 100 100 100 09/06/21 15:31 09/06/21 16:00 09/06/21 17:44 Temperature Pulse Rate 121 H 116 H Respiratory Rate Blood Pressure Pulse Oximetry 100 09/06/21 18:00 09/06/21 20:00 09/06/21 22:00 Temperature 37.1 C Pulse Rate 116 H 120 H 131 H Respiratory Rate 22 H 26 H 19 Blood Pressure 124/78 123/73 118/63 Pulse Oximetry 100 100 100 09/06/21 23:36 09/06/21 23:41 09/07/21 00:00 Temperature 37.1 C Pulse Rate 130 H 124 H Respiratory Rate 36 H Blood Pressure 118/63 Pulse Oximetry 100 100 09/07/21 02:00 09/07/21 04:00 09/07/21 05:31 Temperature 36.8 C Pulse Rate 123 H 129 H 120 H Respiratory Rate 24 H 26 H 25 H Blood Pressure 102/64 115/69 115/69 Pulse Oximetry 100 100 100 09/07/21 08:00 Temperature 36.6 C Pulse Rate 123 H Respiratory Rate 18 Blood Pressure 125/75 Pulse Oximetry 100 Intake/Output Intake/Output: Intake & Output 09/04/21 09/05/21 09/06/21 09/07/21 23:59 23:59 23:59 23:59 Intake Total 5450 5306 1900 Output Total 4800 4300 1200 Balance 650 1006 700 Meds/Results Medications: Active Medications Generic Name Dose Route Start Last Admin Trade Name Freq PRN Reason Stop Dose Admin Dextrose 12.5 gm 09/05/21 07:25 Dextrose 50% 25 Gm/50 Ml Syringe IV PUSH PRN PRN Hypoglycemia Protocol Enoxaparin Sodium 40 mg 09/06/21 09:00 09/07/21 08:30 Enoxaparin 40 Mg/0.4 Ml Syringe SUB-Q 40 mg DAILY DOMINIQUE Administration Glucagon 1 mg 09/05/21 07:25 Glucagon For Inj 1 Mg Vial IM PRN PRN Hypoglycemia Protocol Glucose 15 gm 09/05/21 07:25 Glucose Oral Gel 15 Gm Of Glucse In 37.5 Gm Tube PO PRN PRN Hypoglycemia Protocol Hydromorphone HCl 0.5 mg 09/05/21 08:58 09/06/21 08:16 Hydromorphone Hcl Inj (*Crx) 1 Mg/Ml Syr IV PUSH 0.5 mg Q4H PRN Administration Pain Rated 7-10 Vancomycin HCl 1,500 mg in 500 mls @ 333.333 mls/hr 09/07/21 04:00 09/07/21 06:29 Vancomycin 1,500 Mg/D5w 500 Ml IVPB Infused Q18H DOMINIQUE Infusion Acetaminophen 1,000 mg in 100 mls @ 400 mls/hr 09/06/21 22:30 09/07/21 00:14 Ofirmev 1,000 Mg Ivpb IVPB 09/07/21 22:29 Infused Q6H PRN Infusion Pain Rated 4-6 Sodium Chloride 1,000 mls @ 150 mls/hr 09/07/21 06:45 09/07/21 06:50 Normal Saline Iv IV CONT 150 mls/hr .Q6H40M DOMINIQUE Administration Pot
[2021-09-07 11:29] LABS: Glucose Point of Care 193 mg/dl (65-105)
[2021-09-07 12:03] LABS: Anion Gap 18 mmol/L (8-16); Blood Urea Nitrogen 5 mg/dL (7-17); Calcium 9.2 mg/dL (8.4-10.2); Carbon Dioxide 9 mmol/L (22-30); Chloride 118 mmol/L (98-107); Estimated CRCL calculation 82 ml/min; Estimated Glomerular Filt Rate > 60; Glucose 260 mg/dL (65-110); Potassium 3.4 mmol/L (3.4-5.0); Sodium 145 mmol/L (137-145)
[2021-09-07 13:18] LABS: Glucose Point of Care 239 mg/dl (65-105)
[2021-09-07] MEDS: DEXTROSE 50% 25 GM/50 ML SYRINGE IV PUSH (16:46)
[2021-09-07 18:21] LABS: Anion Gap 15 mmol/L (8-16); Blood Urea Nitrogen 5 mg/dL (7-17); Calcium 9.6 mg/dL (8.4-10.2); Carbon Dioxide 12 mmol/L (22-30); Chloride 120 mmol/L (98-107); Estimated CRCL calculation 82 ml/min; Estimated Glomerular Filt Rate > 60; Glucose 119 mg/dL (65-110); Potassium 4.8 mmol/L (3.4-5.0); Sodium 147 mmol/L (137-145)
[2021-09-07 18:44] LABS: Glucose Point of Care 111 mg/dl (65-105)
[2021-09-07 18:44] LABS: Glucose Point of Care 108 mg/dl (65-105)
[2021-09-07 18:44] LABS: Glucose Point of Care 41 mg/dl (65-105)
[2021-09-07 18:44] LABS: Glucose Point of Care 168 mg/dl (65-105)
[2021-09-07 18:44] LABS: Glucose Point of Care 204 mg/dl (65-105)
[2021-09-07 19:16] LABS: Anion Gap 14 mmol/L (8-16); Blood Urea Nitrogen 5 mg/dL (7-17); Calcium 9.3 mg/dL (8.4-10.2); Carbon Dioxide 13 mmol/L (22-30); Chloride 119 mmol/L (98-107); Estimated CRCL calculation 82 ml/min; Estimated Glomerular Filt Rate > 60; Glucose 157 mg/dL (65-110); Potassium 3.2 mmol/L (3.4-5.0); Sodium 146 mmol/L (137-145)
[2021-09-07 20:17] LABS: Glucose Point of Care 282 mg/dl (65-105)
[2021-09-07 21:25] LABS: Glucose Point of Care 218 mg/dl (65-105)
[2021-09-07 22:32] LABS: Glucose Point of Care 150 mg/dl (65-105)
[2021-09-07] MEDS: INSULIN HUMAN REGULAR (*BKC) 100 UNITS in SODIUM CHLORIDE 0.9% IV 99 ML 8.1 UNITS IV CONT (23:15)
[2021-09-07 23:41] LABS: Anion Gap 12 mmol/L (8-16); Blood Urea Nitrogen 5 mg/dL (7-17); Calcium 9.3 mg/dL (8.4-10.2); Carbon Dioxide 15 mmol/L (22-30); Chloride 117 mmol/L (98-107); Estimated CRCL calculation 82 ml/min; Estimated Glomerular Filt Rate > 60; Glucose 113 mg/dL (65-110); Sodium 144 mmol/L (137-145)
[2021-09-08] VITALS (16 sets, daily range): BP systolic 124–151; BP diastolic 83–110; PULSE 95–118; RESP 17–23; TEMP 35.9–37.6; O2SAT 98–100
[2021-09-08 00:47] LABS: Glucose Point of Care 122 mg/dl (65-105)
[2021-09-08 02:47] LABS: Glucose Point of Care 128 mg/dl (65-105)
[2021-09-08 03:49] LABS: Hematocrit 34.3 % (37.0-47.0); Mean Corpuscular Volume 80.1 fl (80-100); Mean Platelet Volume 10.6 fl (7.4-10.4); Platelet Count Result 380 k/mm3 (150-375); Red Blood Count 4.28 M/mm3 (4.2-5.4); Red Cell Distribution Width 13.7 % (11.5-14.5)
[2021-09-08 04:23] LABS: Anion Gap 9 mmol/L (8-16); Blood Urea Nitrogen 4 mg/dL (7-17); Calcium 8.9 mg/dL (8.4-10.2); Carbon Dioxide 17 mmol/L (22-30); Chloride 117 mmol/L (98-107); Estimated CRCL calculation 90 ml/min; Estimated Glomerular Filt Rate > 60; Glucose 109 mg/dL (65-110); Magnesium 1.4 mg/dL (1.6-2.3); Phosphorus 2.6 mg/dL (2.5-4.5); Potassium 2.9 mmol/L (3.4-5.0); Sodium 143 mmol/L (137-145)
[2021-09-08 04:26] LABS: CRP 13.2 mg/dL (<1.0)
[2021-09-08 04:49] LABS: Glucose Point of Care 87 mg/dl (65-105)
[2021-09-08 06:14] LABS: Glucose Point of Care 175 mg/dl (65-105)
[2021-09-08] MEDS: KCL 20 MEQ/D5/0.45% SOD CHL 1,000 ML 150 ML IV CONT ×2 (06:14→19:49)
[2021-09-08 06:51] LABS: Glucose Point of Care 220 mg/dl (65-105)
[2021-09-08] MEDS: LACTATED RINGERS 1,000 ML 30 ML IV CONT (07:05)
--- NOTE | 2021-09-08 07:07 | P.PNAN_ITS ---
Anes - Eval Pre Procedure Procedure: Operation Date: 09/08/21 07:30 Proposed Procedures p I&D Mitra-Rectal Abscess(Left) - Lisa Duffy MD Date/Time: 09/08/21 07:07 Pre Op Diagnosis: DKA Patient Data Age: 31 Gender: F Height: 1.73 m Weight: 98.5 kg Last Vital Signs Temp 36.8 C 09/08/21 03:34 Pulse 114 H 09/08/21 05:36 Resp 18 09/08/21 05:36 BP 134/101 H 09/08/21 05:36 Pulse Ox 100 09/08/21 05:36 Allergies Allergy/AdvReac Type Severity Reaction Status Date / Time No Known Allergies Allergy Mild Verified 09/05/21 06:48 Home Medications Medication Instructions Recorded Confirmed Type insulin NPH and regular human 40 unit SUBCUT BID 09/05/21 09/05/21 History [Novolin 70-30 FlexPen U-100] atorvastatin 10 mg PO DAILY 09/06/21 09/06/21 History lisinopril 20 mg PO DAILY 09/06/21 09/06/21 History Laboratory Tests 09/07/21 09/07/21 09/07/21 07:24 08:24 09:23 WBC RBC Hgb Hct MCV MCH MCHC RDW Plt Count MPV Sodium 142 mmol/L mmol/L (137-145) Potassium 3.1 mmol/L L mmol/L (3.4-5.0) Chloride 116 mmol/L H mmol/L (98-107) Carbon Dioxide 11 mmol/L L mmol/L (22-30) Anion Gap 15 mmol/L mmol/L (8-16) BUN 5 mg/dL L mg/dL (7-17) Creatinine 1.20 mg/dL H mg/dL (0.7-1.0) Estim Creat Clear Calc 76 ml/min ml/min Estimated GFR > 60 (59 - ) Glucose 228 mg/dL H mg/dL (65-110) POC Capillary Glucose 122 mg/dl H mg/dl 113 mg/dl H mg/dl (65-105) (65-105) Calcium 9.5 mg/dL mg/dL (8.4-10.2) Phosphorus Magnesium C-Reactive Protein 09/07/21 09/07/21 09/07/21 11:03 11:28 13:15 WBC RBC Hgb Hct MCV MCH MCHC RDW Plt Count MPV Sodium 145 mmol/L mmol/L (137-145) Potassium 3.4 mmol/L mmol/L (3.4-5.0) Chloride 118 mmol/L H mmol/L (98-107) Carbon Dioxide 9 mmol/L L mmol/L (22-30) Anion Gap 18 mmol/L H mmol/L (8-16) BUN 5 mg/dL L mg/dL (7-17) Creatinine 1.10 mg/dL H mg/dL (0.7-1.0) Estim Creat Clear Calc 82 ml/min ml/min Estimated GFR > 60 (59 - ) Glucose 260 mg/dL H mg/dL (65-110) POC Capillary Gluc
--- NOTE | 2021-09-08 07:13 | WPDHPUPDATE1 ---
History and Physical Update Update Date/Time: 09/08/21 07:13 History and Physical has been reviewed, including an updated exam of the patient. There are NO changes in the patient's condition. Risks, benefits, and alternatives have been discussed and questions answered. Patient agrees to proceed with procedure. CT reviewed, will proceed c complex incision and drainage of L gluteal abscess in OR.
--- NOTE | 2021-09-08 07:35 | WPDANESEPPF ---
Anes - Initial Pre Proc Eval Procedure: Operation Date: 09/08/21 07:30 Proposed Procedures p I&D Mitra-Rectal Abscess(Left) - Lisa Duffy MD Date/Time: 09/08/21 07:35 Surgeon: Sarah Burroughs DO Pre Op Diagnosis: DKA Patient Data Age: 31 Gender: F Height: 1.73 m Weight: 98.5 kg Last Vital Signs Temp 36.8 C 09/08/21 03:34 Pulse 114 H 09/08/21 05:36 Resp 18 09/08/21 05:36 BP 134/101 H 09/08/21 05:36 Pulse Ox 100 09/08/21 05:36 Allergies Allergy/AdvReac Type Severity Reaction Status Date / Time No Known Allergies Allergy Mild Verified 09/05/21 06:48 Home Medications Medication Instructions Recorded Confirmed Type insulin NPH and regular human 40 unit SUBCUT BID 09/05/21 09/05/21 History [Novolin 70-30 FlexPen U-100] atorvastatin 10 mg PO DAILY 09/06/21 09/06/21 History lisinopril 20 mg PO DAILY 09/06/21 09/06/21 History Laboratory Tests 09/07/21 09/07/21 09/07/21 07:24 08:24 09:23 WBC RBC Hgb Hct MCV MCH MCHC RDW Plt Count MPV Sodium 142 mmol/L mmol/L (137-145) Potassium 3.1 mmol/L L mmol/L (3.4-5.0) Chloride 116 mmol/L H mmol/L (98-107) Carbon Dioxide 11 mmol/L L mmol/L (22-30) Anion Gap 15 mmol/L mmol/L (8-16) BUN 5 mg/dL L mg/dL (7-17) Creatinine 1.20 mg/dL H mg/dL (0.7-1.0) Estim Creat Clear Calc 76 ml/min ml/min Estimated GFR > 60 (59 - ) Glucose 228 mg/dL H mg/dL (65-110) POC Capillary Glucose 122 mg/dl H mg/dl 113 mg/dl H mg/dl (65-105) (65-105) Calcium 9.5 mg/dL mg/dL (8.4-10.2) Phosphorus Magnesium C-Reactive Protein 09/07/21 09/07/21 09/07/21 11:03 11:28 13:15 WBC RBC Hgb Hct MCV MCH MCHC RDW Plt Count MPV Sodium 145 mmol/L mmol/L (137-145) Potassium 3.4 mmol/L mmol/L (3.4-5.0) Chloride 118 mmol/L H mmol/L (98-107) Carbon Dioxide 9 mmol/L L mmol/L (22-30) Anion Gap 18 mmol/L H mmol/L (8-16) BUN 5 mg/dL L mg/dL (7-17) Creatinine 1.10 mg/dL H mg/dL (0.7-1.0) Estim Creat Clear Calc 82 ml/min ml/min Estimated GFR > 60 (59 - ) Glucose 260 mg/dL H mg/dL (65-110) POC Capillary Glucose 193 mg/dl H mg/dl 239 mg/dl H mg/dl (65-105) (65-105) Calcium 9.2 mg/dL mg/dL (8.4-10.2) Phosphorus Magnesium C-Reactive Protein 09/07/21 09/07/21 09/07/21 14:07 15:12 15:24 WBC RBC Hgb Hct MCV MCH MCHC RDW Plt Count MPV Sodium 147 mmol/L H mmol/L (137-145) Potassium 4.8 mmol/L mmol/L (3.4-5.0) Chloride 120 mmol/L H mmol/L (98-107) Carbon Dioxide 12 mmol/L L mmol/L (22-30) Anion Gap 15 mmol/L mmol/L (8-16) BUN 5 mg/dL L mg/dL (7-17) Creatinine 1.10 mg/dL H mg/dL (0.7-1.0) Estim Creat Clear Calc 82 ml/min ml/min Estimated GFR > 60 (59 - ) Glucose 119 mg/dL H mg/dL (65-110) POC Capillary Glucose 204 mg/dl H mg/dl 111 mg/dl H mg/dl (65-105) (65-105) Calcium 9.6 mg/dL mg/dL (8.4-10.2) Phosphorus Magnesium C-Reactive Protein 09/07/21 09/07/21 09/07/21 16:34 17:36 18:40 WBC RBC Hgb Hct MCV MCH MCHC RDW Plt Count MPV Sodium Potassium
[2021-09-08] MEDS: LIDO 1%/EPINEPHRINE 1:100,000 50 ML VIAL 10 ML INFILTRATE (07:52)
--- NOTE | 2021-09-08 08:15 | P.OP_ITS ---
Procedure Note - Detailed Date of Procedure 09/08/21 Pre-op Diagnosis L buttock abscess, DKA Post-op Diagnosis same Procedure Performed complex incision and drainage L buttock abscess measuring approx 8x3x9 cm Surgeon Lisa Duffy MD Anesthesia MAC and local Indications 31 y/o F presenting c L gluteal abscess, DKA Findings 8x3x9 cm L gluteal abscess Description of Procedure The patient was taken to the operating and placed in the lateral position. After adequate induction of MAC anesthesia, the patient was prepped and draped in the normal sterile fashion. A time-out was done to verify the patient's iden tity, as well as the procedure being performed. I began by localizing this abscess in the left medial buttock. Once the area was completely anesthetized, I made an incision over the most fluctuant area. An immediate gush of purulent drainage was noted. Approximately 300-400 mL of foul-smelling purulent drainage was noted. Once this area was completely drained, I bluntly dissected the cavity to break up any further loculations. The approximate measurement of the cavity was 8 x 3 x 9 cm. I then copiously irrigated the cavity. The area was then packed with iodoform packing to keep the area open and draining. Sterile dressing was then placed. The patient tolerated the procedure well and was alert and awake the operating room postoperatively. She will be sent to the recovery room in stable condition. Estimated Blood Loss 10 Urine Output 1,800 Drains No Packing Yes Pathology none sent Complications No immediate complications Condition stable Disposition PACU
[2021-09-08 08:20] LABS: Glucose Point of Care 217 mg/dl (65-105)
--- NOTE | 2021-09-08 08:20 | SUR.OPER ---
patient voided in pre op 0730 on bedpan 440ml ramiro clear urine. patient alert and oriented in preop.
[2021-09-08] MEDS: fentaNYL CITRATE INJ (*CRX) 100 MCG/2 ML VIAL 25 MCG IV PUSH (08:27)
[2021-09-08] MEDS: MAGNESIUM SULF 4 GM/WATER100ML 4 GM/100 ML BAG IVPB (09:26)
--- NOTE | 2021-09-08 11:45 | WPDINTPN ---
Progress Note: A&P Assessment and Plan (1) DKA (diabetic ketoacidosis): Qualifiers: Diabetes mellitus complication detail: without coma Diabetes mellitus type: due to underlying condition Qualified Code(s): E08.10 - Diabetes mellitus due to underlying condition with ketoacidosis without coma Code(s): E11.10 - Type 2 diabetes mellitus with ketoacidosis without coma Status: Acute Assessment and Plan: Patient presented with elevated blood sugars, metabolic acidosis, likely anion gap was elevated but not calculable due to CO2 being significantly low -patient received adequate amount of fluids, roughly on 5 L of IV fluid in bolus plus maintenance IV fluids -patient also received sodium bicarbonate as a pH was 6.9 -continue insulin infusion per DKA protocol -awaiting repeat labs, if anion gap is closed will transition to long-acting insulin and sliding scale insulin -Hemoglobin A1c is 10.9 this admission (2) Gluteal abscess: Code(s): L02.31 - Cutaneous abscess of buttock Status: Acute Assessment and Plan: Gluteal abscess as seen on the CT scan of the abdomen/pelvis, 2.8 cm x 6.5 cm with no gas seen on the abscess -purulent drainage was seen in the ER, -surgery has been consulted for possible I&D -discussed with surgeon, WBC count has normalized. Given her DKA is not improving surgery recommended repeating the CT scan of the abdomen and pelvis to assess gluteal abscess which may require I&D. -continue vancomycin and Zosyn -status post I and D of the gluteal abscess with removal of 300-400 mL of purulent drainage. Cavity has been pack with iodoform gauze. Surgery following the patient (3) Sepsis: Code(s): A41.9 - Sepsis, unspecified organism Status: Acute Assessment and Plan: Tachycardic, tachypneic, elevated WBC count with left gluteal abscess as a source of infection -continue vancomycin and Zosyn which were initiated on 09/05/2020 09/05/2021: Blood cultures negative x2 WBC count is normalized (4) Acute kidney injury: Code(s): N17.9 - Acute kidney failure, unspecified Status: Acute Assessment and Plan: RESOLVED. Patient presented with acute kidney injury which is improving with IV fluids -continue to monitor urine output, renal function electrolytes Additional Plan Discussed with patient, updated with her condition and plan of care. Awaiting her labs, once her anion gap is closed, will transition to long-acting insulin and sliding scale insulin Code status: Full code Critical care time spent: 32 minutes Discussed with surgery This dictation may have been done utilizing a voice recognition system. Attempts have been made to correct errors. However, there may be uncorrected grammatical, spelling, and recognition errors present. Due to a high probability of clinically significant, life threatening deterioration, the patient required my highest level of preparedness to intervene emergently and I personally spent this critical care time directly and personally managing the patient. This critical care time included obtaining a history; examining the patient; pulse oximetry; ordering and review of studies; arranging urgent treatment with development of a management plan; evaluation of patient's response to treatment; frequent reassessment; and discussions with other providers. It was exclusive of separately billable procedures and treating other patients and teaching time. Please see Assessment and Plan section and the rest of the note for further information on patient assessment and treatment Subjective Date/time seen: 09/08/21 11:45 Interval history: Reason for consult: Diabetic ketoacidosis, gluteal abscess, sepsis 09/08/2021: Patient is awake, alert, oriented. Denies any chest pain, shortness of breath, abdominal pain, nausea, vomiting. Patient was taken to the OR early this morning forr I&D of her gluteal abscess with removal of 300-400 mL of foul s
[2021-09-08 11:57] LABS: Anion Gap 11 mmol/L (8-16); Blood Urea Nitrogen 4 mg/dL (7-17); Calcium 8.6 mg/dL (8.4-10.2); Carbon Dioxide 14 mmol/L (22-30); Chloride 115 mmol/L (98-107); Estimated CRCL calculation 89 ml/min; Estimated Glomerular Filt Rate > 60; Glucose 308 mg/dL (65-110); Potassium 3.1 mmol/L (3.4-5.0); Sodium 140 mmol/L (137-145)
[2021-09-08] MEDS: ENOXAPARIN 40 MG/0.4 ML SYRINGE SUB-Q (12:47)
[2021-09-08] MEDS: INSULIN HUMAN REGULAR (*BKC) 100 UNITS in SODIUM CHLORIDE 0.9% IV 99 ML 12.8 UNITS IV CONT (12:54)
[2021-09-08] MEDS: POTASSIUM CHLORIDE 20 MEQ TABLET 40 MEQ PO (13:00)
[2021-09-08 14:28] LABS: Glucose Point of Care 160 mg/dl (65-105)
[2021-09-08 14:28] LABS: Glucose Point of Care 241 mg/dl (65-105)
[2021-09-08 14:28] LABS: Glucose Point of Care 257 mg/dl (65-105)
[2021-09-08 14:28] LABS: Glucose Point of Care 273 mg/dl (65-105)
--- NOTE | 2021-09-08 15:08 | PM.IMPN ---
Progress Note: A&P Assessment and Plan (1) DKA (diabetic ketoacidosis): Qualifiers: Diabetes mellitus complication detail: without coma Diabetes mellitus type: due to underlying condition Qualified Code(s): E08.10 - Diabetes mellitus due to underlying condition with ketoacidosis without coma Code(s): E11.10 - Type 2 diabetes mellitus with ketoacidosis without coma Status: Acute (2) Gluteal abscess: Code(s): L02.31 - Cutaneous abscess of buttock Status: Acute (3) Sepsis: Code(s): A41.9 - Sepsis, unspecified organism Status: Acute (4) Acute kidney injury: Code(s): N17.9 - Acute kidney failure, unspecified Status: Acute Additional Plan s/p I&D today of lt buttock abscess 8x3x9 with surgery - 300-400mL foul smelling purulent drainage Continue Vanc/Zosyn empirically until cultures allow for narrowing; no longer on pressors Insulin Drip & KCl in D5-1/2NS running for DKA - gap closed, HCO3 14 PRNs on board, incl Dilaudid Zofran Time Spent With Patient Time with patient: less than 15 minutes Subjective Date/time seen: 09/08/21 15:08 no acute medical complaints she feels drowsy - but no chest pain, sob, etc. Review of Systems Review of Systems: All systems reviewed & are unremarkable except as noted in HPI and below Exam Const: General: no acute distress Neck: Neck: no JVD Resp: Effort & Inspection: normal respiratory effort Auscultation: clear to auscultation bilaterally Cardio: Rate: regular rate Rhythm: regular rhythm GI: GI Palp: Yes Soft to palpation and No Tenderness to palpation present (GI) Objective Data Vital Signs Vital Signs: Vital Signs - 24 hr 09/07/21 16:00 09/07/21 18:00 09/07/21 19:47 Temperature 97.0 F L Pulse Rate 136 H 124 H 113 H Respiratory Rate 30 H 18 20 Blood Pressure 150/89 H 144/83 H Pulse Oximetry 99 100 100 09/07/21 19:53 09/07/21 20:00 09/07/21 21:27 Temperature 97.2 F L Pulse Rate 114 H 111 H 120 H Respiratory Rate 22 H 21 H Blood Pressure 144/83 H 131/82 Pulse Oximetry 100 100 09/07/21 23:59 09/08/21 00:00 09/08/21 02:00 Temperature 97.9 F 97.9 F Pulse Rate 108 H 111 H 105 H Respiratory Rate 22 H 17 17 Blood Pressure 144/83 H 140/89 Pulse Oximetry 100 100 98 09/08/21 03:32 09/08/21 03:34 09/08/21 05:36 Temperature 98.2 F Pulse Rate 106 H 115 H 114 H Respiratory Rate 19 17 18 Blood Pressure 140/89 134/101 H Pulse Oximetry 100 100 100 09/08/21 08:13 09/08/21 08:28 09/08/21 08:43 Temperature 99.6 F 98.1 F Pulse Rate 118 H 115 H 113 H Respiratory Rate 18 17 Blood Pressure 126/88 149/95 H 142/91 H Pulse Oximetry 100 100 100 09/08/21 09:00 09/08/21 10:00 09/08/21 12:00 Temperature 97.3 F L 97.3 F L Pulse Rate 108 H 108 H 103 H Respiratory Rate 19 19 23 H Blood Pressure 141/88 H 143/85 H 135/97 H Pulse Oximetry 99 99 100 09/08/21 14:00 Temperature Pulse Rate 102 H Respiratory Rate 19 Blood Pressure 124/97 H Pulse Oximetry 100 Intake/Output Intake/Output: Intake & Output 09/05/21 09/06/21 09/07/21 09/08/21 23:59 23:59 23:59 23:59 Intake Total 5450 5306 4963 2550 Output Total 4800 4300 3700 3600 Balance 650 1006 1263 -1050 Meds/Results Medications: Active Medications Generic Name Dose Route Start Last Admin Trade Name Freq PRN Reason Stop Dose Admin Dextrose 12.5 gm 09/05/21 07:25 09/07/21 16:46 Dextrose 50% 25 Gm/50 Ml Syringe IV PUSH 12.5 gm PRN PRN Administration Hypoglycemia Protocol Enoxaparin Sodium 40 mg 09/06/21 09:00 09/08/21 12:47 Enoxaparin 40 Mg/0.4 Ml Syringe SUB-Q 40 mg DAILY DOMINIQUE Administration Glucagon 1 mg 09/05/21 07:25 Glucagon For Inj 1 Mg Vial IM PRN PRN Hypoglycemia Protocol Glucose 15 gm 09/05/21 07:25 Glucose Oral Gel 15 Gm Of Glucse In 37.5 Gm Tube PO PRN PRN Hypoglycemia Protocol Hydromorphone HCl 0.5 mg 09/05/21 08:58 09/06/21 08:16
[2021-09-08 16:42] LABS: Vancomycin Trough 9.4 ug/mL (10.0-20.0)
[2021-09-08 18:33] LABS: Glucose Point of Care 110 mg/dl (65-105)
[2021-09-08 18:33] LABS: Glucose Point of Care 127 mg/dl (65-105)
[2021-09-08 18:33] LABS: Glucose Point of Care 147 mg/dl (65-105)
[2021-09-08 18:33] LABS: Glucose Point of Care 105 mg/dl (65-105)
[2021-09-08 19:22] LABS: Anion Gap 9 mmol/L (8-16); Blood Urea Nitrogen 3 mg/dL (7-17); Calcium 8.8 mg/dL (8.4-10.2); Carbon Dioxide 18 mmol/L (22-30); Chloride 117 mmol/L (98-107); Estimated CRCL calculation 89 ml/min; Estimated Glomerular Filt Rate > 60; Glucose 163 mg/dL (65-110); Potassium 3.3 mmol/L (3.4-5.0); Sodium 144 mmol/L (137-145)
[2021-09-08 19:53] LABS: Glucose Point of Care 176 mg/dl (65-105)
[2021-09-08] MEDS: POTASSIUM CHLORIDE 20 MEQ TABLET 80 MEQ PO (20:49)
[2021-09-08] MEDS: INSULIN GLARGINE (*BKC) 100 UNITS/ML 40 UNITS SUB-Q (20:56)
[2021-09-08 21:01] LABS: Glucose Point of Care 146 mg/dl (65-105)
[2021-09-09] VITALS (8 sets, daily range): BP systolic 124–147; BP diastolic 77–107; PULSE 93–109; RESP 16–20; TEMP 36.2–37.2; O2SAT 99–100; BMI 34.4
[2021-09-09 04:40] LABS: Hematocrit 30.2 % (37.0-47.0); Hemoglobin 10.5 g/dL (12.0-15.0); Mean Corpuscular HGB Conc 34.8 g/dl (32-36); Mean Corpuscular Hemoglobin 27.9 pg (26-34); Mean Corpuscular Volume 80.3 fl (80-100); Mean Platelet Volume 10.7 fl (7.4-10.4); Platelet Count Result 336 k/mm3 (150-375); Red Blood Count 3.76 M/mm3 (4.2-5.4); White Blood Count 8.5 K/mm3 (4.5-10.0)
[2021-09-09 04:53] LABS: Anion Gap 8 mmol/L (8-16); Blood Urea Nitrogen 4 mg/dL (7-17); Calcium 8.6 mg/dL (8.4-10.2); Carbon Dioxide 18 mmol/L (22-30); Chloride 116 mmol/L (98-107); Estimated CRCL calculation 98 ml/min; Estimated Glomerular Filt Rate > 60; Glucose 236 mg/dL (65-110); Magnesium 2.2 mg/dL (1.6-2.3); Phosphorus 2.7 mg/dL (2.5-4.5); Potassium 4.1 mmol/L (3.4-5.0); Sodium 142 mmol/L (137-145)
[2021-09-09] MEDS: ENOXAPARIN 40 MG/0.4 ML SYRINGE SUB-Q (08:45)
[2021-09-09 08:47] LABS: Glucose Point of Care 278 mg/dl (65-105)
[2021-09-09] MEDS: INSULIN ASPART (*BKC) 100 UNITS/ML SUB-Q ×3 (08:51→17:54)
--- NOTE | 2021-09-09 08:57 | WPDINTPN ---
Progress Note: A&P Assessment and Plan (1) DKA (diabetic ketoacidosis): Qualifiers: Diabetes mellitus complication detail: without coma Diabetes mellitus type: due to underlying condition Qualified Code(s): E08.10 - Diabetes mellitus due to underlying condition with ketoacidosis without coma Code(s): E11.10 - Type 2 diabetes mellitus with ketoacidosis without coma Status: Acute Assessment and Plan: Patient presented with elevated blood sugars, metabolic acidosis, likely anion gap was elevated but not calculable due to CO2 being significantly low -patient received adequate amount of fluids, roughly on 5 L of IV fluid in bolus plus maintenance IV fluids -patient also received sodium bicarbonate as a pH was 6.9 -patient transition to long-acting insulin and sliding scale insulin overnight -tolerating p.o. diet -Hemoglobin A1c is 10.9 this admission (2) Gluteal abscess: Code(s): L02.31 - Cutaneous abscess of buttock Status: Acute Assessment and Plan: Gluteal abscess as seen on the CT scan of the abdomen/pelvis, 2.8 cm x 6.5 cm with no gas seen on the abscess -purulent drainage was seen in the ER, -surgery has been consulted for possible I&D -discussed with surgeon, WBC count has normalized. Given her DKA is not improving surgery recommended repeating the CT scan of the abdomen and pelvis to assess gluteal abscess which may require I&D. -continue vancomycin and Zosyn -status post I and D of the gluteal abscess with removal of 300-400 mL of purulent drainage. Cavity has been pack with iodoform gauze. Surgery following the patient (3) Sepsis: Code(s): A41.9 - Sepsis, unspecified organism Status: Acute Assessment and Plan: Tachycardic, tachypneic, elevated WBC count with left gluteal abscess as a source of infection -continue vancomycin and Zosyn which were initiated on 09/05/2020 09/05/2021: Blood cultures negative x2 WBC count is normalized (4) Acute kidney injury: Code(s): N17.9 - Acute kidney failure, unspecified Status: Acute Assessment and Plan: RESOLVED. Patient presented with acute kidney injury which is improving with IV fluids -continue to monitor urine output, renal function electrolytes Additional Plan Discussed with patient, updated with her condition and plan of care. Awaiting her labs, once her anion gap is closed, will transition to long-acting insulin and sliding scale insulin Code status: Full code Critical care time spent: 31 minutes Patient be transferred out of the ICU today This dictation may have been done utilizing a voice recognition system. Attempts have been made to correct errors. However, there may be uncorrected grammatical, spelling, and recognition errors present. Due to a high probability of clinically significant, life threatening deterioration, the patient required my highest level of preparedness to intervene emergently and I personally spent this critical care time directly and personally managing the patient. This critical care time included obtaining a history; examining the patient; pulse oximetry; ordering and review of studies; arranging urgent treatment with development of a management plan; evaluation of patient's response to treatment; frequent reassessment; and discussions with other providers. It was exclusive of separately billable procedures and treating other patients and teaching time. Please see Assessment and Plan section and the rest of the note for further information on patient assessment and treatment Subjective Date/time seen: 09/09/21 08:57 Interval history: Reason for consult: Diabetic ketoacidosis, gluteal abscess, sepsis 09/08: Status post I&D of the gluteal abscess with 300-400 mL drainage of purulent material 09/09/2021: Patient seen and examined the ICU, is awake, alert, oriented, seems to be withdrawn. Denies any chest pain, shortness of breath, abdominal pain, nausea, vomiting. Urin
--- NOTE | 2021-09-09 11:05 | PCDIET ---
Nutrition Follow-Up Complete: Nutrition Diagnosis: Altered nutrition related labs related to diabetes mellitus as evidenced by HgbA1C of 10.9%. Nutrition Goal: Patient to meet estimated nutritional needs. Goal in progress. Patient reports tolerating diabetic diet without c/o. Declines diet education at this time. Explained importance of glucose control with regard to healing and patient verbalized understanding. Also explained importance of adequate protein intake and sources were reviewed. Encouraged patient to notify RD if she changes her mind regarding education or educational handouts. Patient denies needs at this time. Last recorded weight is 102.9 kg which is increased from last review. Bowel Motility: Last BM on 09/08/21, per RN. Labs Reviewed: RBC (3.76), Hgb (10.5), Hct (30.2), Glu (236), Cl (116) Meds Noted: Zosyn, Vancomycin, Novolog, Lantus Additional Notes: POD #1 s/p I&D of left buttock abscess. No other skin issues reported. Will continue to monitor with same goal. Nutrition Monitoring and Evaluation: Follow up every 5 days.
[2021-09-09 12:13] LABS: Glucose Point of Care 279 mg/dl (65-105)
--- NOTE | 2021-09-09 12:37 | PM.PNGS ---
Progress Note: A&P Assessment and Plan (1) Gluteal abscess: Code(s): L02.31 - Cutaneous abscess of buttock Status: Acute Assessment and Plan: Left gluteal abscess appears adequately drained. Continue local wound care. Will start 1/4 iodoform packing daily. (2) Diabetic ketoacidosis: Code(s): E11.10 - Type 2 diabetes mellitus with ketoacidosis without coma Status: Acute Assessment and Plan: Improving. Transitioned off insulin drip to sliding scale and long-acting insulin subQ. Management per primary service. Additional Plan I have discussed the patient's case and plan of care with Dr. Duffy. Subjective Subjective Date/Time Seen: 09/09/21 12:37 Post Op day: 1 (I&D L buttock abscess) Patient reports: no new complaints, feels better and afebrile Interval history: Patient seen and examined this morning. This is a 31 yo AA F who presented with DKA, sepsis, JOY and left buttock abscess. She underwent I&D left buttock abscess yesterday in the OR by Dr. Duffy. This morning, she reports feeling well without any complaints of pain. She is tired, but otherwise no specific complaints. Was initially on an insulin drip in the ICU but has been transitioned to subQ short and long-acting insulin with the insulin drip now off. Review of Systems Review of Systems: All systems reviewed & are unremarkable except as noted in HPI and below Exam Const: General: comfortable, no acute distress, alert and awake Nutritional Appearance: obese Orientation/consciousness: patient oriented x3 Skin: Other: Removed dressing and packing from left gluteal abscess, no purulent drainage, induration improved. Neuro: General: moves all extremities and no focal motor deficits Extrem: General: normal to inspection and no edema Psych: Mental Status: mental status grossly normal Objective Data Vital Signs Vital Signs: Vital Signs - 24 hr 09/08/21 14:00 09/08/21 16:00 09/08/21 18:00 Temperature 96.7 F L Pulse Rate 102 H 95 107 H Respiratory Rate 19 19 18 Blood Pressure 124/97 H 136/99 H 130/98 H Pulse Oximetry 100 100 100 09/08/21 20:00 09/08/21 22:00 09/09/21 00:00 Temperature 97.2 F L 97.6 F Pulse Rate 95 101 H 109 H Respiratory Rate 22 H 23 H 20 Blood Pressure 132/92 H 151/110 H 128/79 Pulse Oximetry 100 100 99 09/09/21 02:00 09/09/21 04:00 09/09/21 06:00 Temperature 97.1 F L 97.6 F Pulse Rate 101 H 104 H 93 Respiratory Rate 18 19 16 Blood Pressure 147/107 H 140/97 H 140/96 H Pulse Oximetry 100 100 100 09/09/21 08:00 09/09/21 10:00 Temperature 98.7 F Pulse Rate 99 97 Respiratory Rate 18 18 Blood Pressure 142/100 H 130/86 Pulse Oximetry 100 100 Intake/Output Intake/Output: Intake & Output 09/06/21 09/07/21 09/08/21 09/09/21 23:59 23:59 23:59 23:59 Intake Total 5306 4963 4581 2180 Output Total 4300 3700 4600 1800 Balance 1006 1263 -19 380 Meds/Results Medications: Active Medications Generic Name Dose Route Start Last Admin Trade Name Freq PRN Reason Stop Dose Admin Atorvastatin Calcium 10 mg 09/09/21 10:10 Atorvastatin 10 Mg Tablet PO DAILY DOMINIQUE Dextrose 12.5 gm 09/05/21 07:25 09/07/21 16:46 Dextrose 50% 25 Gm/50 Ml Syringe IV PUSH 12.5 gm PRN PRN Administration Hypoglycemia Protocol Enoxaparin Sodium 40 mg 09/06/21 09:00 09/09/21 08:45 Enoxaparin 40 Mg/0.4 Ml Syringe SUB-Q 40 mg DAILY DOMINIQUE Administration Glucagon 1 mg 09/05/21 07:25 Glucagon For Inj 1 Mg Vial IM PRN PRN Hypoglycemia Protocol Glucose 15 gm 09/05/21 07:25 Glucose Oral Gel 15 Gm Of Glucse In 37.5 Gm Tube PO PRN PRN Hypoglycemia Protocol Hydromorphone HCl 0.5 mg 09/05/21 08:58 09/06/21 08:16 Hydromorphone Hcl Inj (*Crx) 1 Mg/Ml Syr IV PUSH 0.5 mg Q4H PRN Administration Pain Rated 7-10 Vancomycin HCl 1,500 mg in 500 mls @ 333.333 mls/hr 09/08/21 17:00 09/09/21 08:01 Vancomycin 1,500 Mg/D5w 500 M
[2021-09-09] MEDS: lisinopriL 20 MG TABLET PO (12:44)
[2021-09-09] MEDS: ATORVASTATIN 10 MG TABLET PO (12:44)
--- NOTE | 2021-09-09 13:19 | WPDANESPN ---
Anes - Prog Note Post-Op Date/Time: 09/09/21 13:19 Cardiovascular status: normal Respiratory status: normal Airway patency: baseline Mental status: baseline Post-Op hydration status: normal Vital Signs: Last Vital Signs Temp 98.7 F 09/09/21 08:00 Pulse 97 09/09/21 10:00 Resp 18 09/09/21 10:00 BP 130/86 09/09/21 10:00 Pulse Ox 100 09/09/21 10:00 Pain Score (VAS): 10 I/O: Intake & Output 09/08/21 09/09/21 09/09/21 23:59 07:59 15:59 Intake Total 1031 1100 1080 Output Total 8635 496 8753 Balance 31 500 -120 Laboratory Tests 09/09/21 04:20 09/09/21 04:20 09/08/21 09/08/21 09/08/21 09:16 10:29 12:43 WBC RBC Hgb Hct MCV MCH MCHC RDW Plt Count MPV Sodium Potassium Chloride Carbon Dioxide Anion Gap BUN Creatinine Estim Creat Clear Calc Estimated GFR Glucose POC Capillary Glucose 241 H 257 H 273 H Calcium Phosphorus Magnesium Vancomycin Trough 09/08/21 09/08/21 09/08/21 14:25 15:21 15:41 WBC RBC Hgb Hct MCV MCH MCHC RDW Plt Count MPV Sodium Potassium Chloride Carbon Dioxide Anion Gap BUN Creatinine Estim Creat Clear Calc Estimated GFR Glucose POC Capillary Glucose 160 H 105 Calcium Phosphorus Magnesium Vancomycin Trough 9.4 L 09/08/21 09/08/21 09/08/21 16:45 17:43 18:29 WBC RBC Hgb Hct MCV MCH MCHC RDW Plt Count MPV Sodium Potassium Chloride Carbon Dioxide Anion Gap BUN Creatinine Estim Creat Clear Calc Estimated GFR Glucose POC Capillary Glucose 110 H 127 H 147 H Calcium Phosphorus Magnesium Vancomycin Trough 09/08/21 09/08/21 09/08/21 18:58 19:44 20:51 WBC RBC Hgb Hct MCV MCH MCHC RDW Plt Count MPV Sodium 144 Potassium 3.3 L Chloride 117 H Carbon Dioxide 18 L Anion Gap 9 BUN 3 L Creatinine 1.00 Estim Creat Clear Calc 89 Estimated GFR > 60 Glucose 163 H POC Capillary Glucose 176 H 146 H Calcium 8.8 Phosphorus Magnesium Vancomycin Trough 09/09/21 09/09/21 09/09/21 04:20 04:20 08:44 WBC 8.5 RBC 3.76 L Hgb 10.5 L Hct 30.2 L MCV 80.3 MCH 27.9 MCHC 34.8 RDW 14.0 Plt Count 336 MPV 10.7 H Sodium 142 Potassium 4.1 Chloride 116 H Carbon Dioxide 18 L Anion Gap 8 BUN 4 L Creatinine 0.90 Estim Creat Clear Calc 98 Estimated GFR > 60 Glucose 236 H POC Capillary Glucose 278 H Calcium 8.6 Phosphorus 2.7 Magnesium 2.2 Vancomycin Trough 09/09/21 12:10 WBC RBC Hgb Hct MCV MCH MCHC RDW Plt Count MPV Sodium Potassium Chloride Carbon Dioxide Anion Gap BUN Creatinine Estim Creat Clear Calc Estimated GFR Glucose POC Capillary Glucose 279 H Calcium Phosphorus Magnesium Vancomycin Trough Post-procedural complaints: none Patient Feedback: Patient satisfied with anesthetic care.
--- NOTE | 2021-09-09 16:39 | PM.IMPN ---
Progress Note: A&P Assessment and Plan (1) DKA (diabetic ketoacidosis): Qualifiers: Diabetes mellitus complication detail: without coma Diabetes mellitus type: due to underlying condition Qualified Code(s): E08.10 - Diabetes mellitus due to underlying condition with ketoacidosis without coma Code(s): E11.10 - Type 2 diabetes mellitus with ketoacidosis without coma Status: Acute (2) Gluteal abscess: Code(s): L02.31 - Cutaneous abscess of buttock Status: Acute (3) Sepsis: Code(s): A41.9 - Sepsis, unspecified organism Status: Acute (4) Acute kidney injury: Code(s): N17.9 - Acute kidney failure, unspecified Status: Acute Additional Plan s/p I&D 09/08 of lt buttock abscess [id number] with surgery - 300-400mL foul smelling purulent drainage Continue Vanc/Zosyn empirically until cultures allow for narrowing; no longer on pressors Insulin Drip now off, gap closed; pt still acidotic, but trending up PRNs on board, incl Dilaudid Zofran Transfer to general medical floor today Time Spent With Patient Time with patient: less than 15 minutes Subjective Date/time seen: 09/09/21 16:39 feeling much better no acute complaints comfortbale moving to the floor. Review of Systems Review of Systems: All systems reviewed & are unremarkable except as noted in HPI and below Exam Const: General: no acute distress Neck: Neck: no JVD Resp: Effort & Inspection: normal respiratory effort Auscultation: clear to auscultation bilaterally Cardio: Rate: regular rate Rhythm: regular rhythm GI: GI Palp: Yes Soft to palpation and No Tenderness to palpation present (GI) Objective Data Vital Signs Vital Signs: Vital Signs - 24 hr 09/08/21 18:00 09/08/21 20:00 09/08/21 22:00 Temperature 97.2 F L Pulse Rate 107 H 95 101 H Respiratory Rate 18 22 H 23 H Blood Pressure 130/98 H 132/92 H 151/110 H Pulse Oximetry 100 100 100 09/09/21 00:00 09/09/21 02:00 09/09/21 04:00 Temperature 97.6 F 97.1 F L Pulse Rate 109 H 101 H 104 H Respiratory Rate 20 18 19 Blood Pressure 128/79 147/107 H 140/97 H Pulse Oximetry 99 100 100 09/09/21 06:00 09/09/21 08:00 09/09/21 10:00 Temperature 97.6 F 98.7 F Pulse Rate 93 99 97 Respiratory Rate 16 18 18 Blood Pressure 140/96 H 142/100 H 130/86 Pulse Oximetry 100 100 100 Intake/Output Intake/Output: Intake & Output 09/06/21 09/07/21 09/08/21 09/09/21 23:59 23:59 23:59 23:59 Intake Total 5306 4963 4581 2420 Output Total 4300 3700 4600 1800 Balance 1006 1263 -19 620 Meds/Results Medications: Active Medications Generic Name Dose Route Start Last Admin Trade Name Freq PRN Reason Stop Dose Admin Atorvastatin Calcium 10 mg 09/09/21 10:10 09/09/21 12:44 Atorvastatin 10 Mg Tablet PO 10 mg DAILY DOMINIQUE Administration Dextrose 12.5 gm 09/05/21 07:25 09/07/21 16:46 Dextrose 50% 25 Gm/50 Ml Syringe IV PUSH 12.5 gm PRN PRN Administration Hypoglycemia Protocol Enoxaparin Sodium 40 mg 09/06/21 09:00 09/09/21 08:45 Enoxaparin 40 Mg/0.4 Ml Syringe SUB-Q 40 mg DAILY DOMINIQUE Administration Glucagon 1 mg 09/05/21 07:25 Glucagon For Inj 1 Mg Vial IM PRN PRN Hypoglycemia Protocol Glucose 15 gm 09/05/21 07:25 Glucose Oral Gel 15 Gm Of Glucse In 37.5 Gm Tube PO PRN PRN Hypoglycemia Protocol Hydromorphone HCl 0.5 mg 09/05/21 08:58 09/06/21 08:16 Hydromorphone Hcl Inj (*Crx) 1 Mg/Ml Syr IV PUSH 0.5 mg Q4H PRN Administration Pain Rated 7-10 Vancomycin HCl 1,500 mg in 500 mls @ 333.333 mls/hr 09/08/21 17:00 09/09/21 08:01 Vancomycin 1,500 Mg/D5w 500 Ml IVPB Infused Q12H DOMINIQUE Infusion Dextrose 1,000 mls @ 100 mls/hr 09/05/21 07:25 Dextrose 5% 1,000 Ml IVPB PRN PRN Hypoglycemia Protocol Piperacillin/Tazobactam/Dextrose 3.375 gm in 50 mls @ 100 mls/hr 09/05/21 13:00 09/09/21 12:44 Zosyn 3.375 Gm/D5w 50ml Pm IVPB 10
[2021-09-09 17:41] LABS: Glucose Point of Care 305 mg/dl (65-105)
[2021-09-09] MEDS: INSULIN HUMAN ISOPHAN/REGULAR 70/30 (*BKC) 100 UNITS/ML 33 UNITS SUB-Q (17:56)
[2021-09-09 21:22] LABS: Glucose Point of Care 213 mg/dl (65-105)
[2021-09-10 05:04] VITALS: BP 140/80; PULSE 84; RESP 12; TEMP 36.9; O2SAT 100
[2021-09-10 05:47] LABS: Basophils Absolute Auto 0.1 K/mm3 (0.0-0.1); Basophils Percent Auto 0.5 % (0.2-1.2); Eosinophils Absolute Auto 0.3 K/mm3 (0-0.3); Eosinophils Percent Auto 3.5 % (0-4.4); Hematocrit 34.1 % (37.0-47.0); Hemoglobin 11.8 g/dL (12.0-15.0); Immature Granulocyte Absolute 0.08 K/mm3 (0.00-0.031); Immature Granulocyte Percent A 0.8 % (0-0.5); Lymphocytes Absolute Auto 2.52 K/mm3 (0.9-3.2); Mean Corpuscular HGB Conc 34.6 g/dl (32-36); Mean Corpuscular Hemoglobin 27.8 pg (26-34); Mean Corpuscular Volume 80.4 fl (80-100); Mean Platelet Volume 10.8 fl (7.4-10.4); Monocytes Absolute Auto 0.9 K/mm3 (0.1-0.6); Monocytes Percent Auto 9.2 % (2.6-8.5); Neutrophils Absolute Auto 5.8 K/mm3 (1.3-6.7); Platelet Count Result 425 k/mm3 (150-375); Red Blood Count 4.24 M/mm3 (4.2-5.4); Red Cell Distribution Width 13.4 % (11.5-14.5); White Blood Count 9.7 K/mm3 (4.5-10.0)
[2021-09-10 06:14] LABS: Alanine Aminotransferase 25 U/L (4-35); Albumin Level 3.6 g/dL (3.5-5.1); Alkaline Phosphatase 129 U/L (38-126); Anion Gap 8 mmol/L (8-16); Aspartate Amino Transferase 17 U/L (14-36); Bilirubin,Total 0.3 mg/dL (0.2-1.3); Blood Urea Nitrogen 4 mg/dL (7-17); Calcium 9.2 mg/dL (8.4-10.2); Carbon Dioxide 25 mmol/L (22-30); Chloride 109 mmol/L (98-107); Estimated CRCL calculation 99 ml/min; Estimated Glomerular Filt Rate > 60; Glucose 170 mg/dL (65-110); Magnesium 1.8 mg/dL (1.6-2.3); Phosphorus 4.2 mg/dL (2.5-4.5); Potassium 3.3 mmol/L (3.4-5.0); Sodium 142 mmol/L (137-145)
[2021-09-10 06:52] LABS: Vancomycin Trough 15.5 ug/mL (10.0-20.0)
[2021-09-10 08:00] VITALS: BP 123/75; PULSE 86; RESP 18; TEMP 37; O2SAT 100
[2021-09-10] MEDS: ATORVASTATIN 10 MG TABLET PO (09:15)
[2021-09-10] MEDS: lisinopriL 20 MG TABLET PO (09:16)
[2021-09-10] MEDS: INSULIN HUMAN ISOPHAN/REGULAR 70/30 (*BKC) 100 UNITS/ML 33 UNITS SUB-Q ×2 (09:16→19:00)
[2021-09-10] MEDS: ENOXAPARIN 40 MG/0.4 ML SYRINGE SUB-Q (09:16)
--- NOTE | 2021-09-10 10:04 | PC.NURSE ---
TRANSFERRED TO ROOM 321-2. REPORTED GIVEN TO SELVIN GONZALES. ALL QUESTIONS ANSWERS. BELONGINGS SENT WITH PATIENT.
[2021-09-10 11:42] LABS: Glucose Point of Care 274 mg/dl (65-105)
[2021-09-10] MEDS: INSULIN ASPART (*BKC) 100 UNITS/ML SUB-Q ×2 (12:10→17:59)
--- NOTE | 2021-09-10 12:17 | PM.PNGS ---
Progress Note: A&P Assessment and Plan (1) Gluteal abscess: Code(s): L02.31 - Cutaneous abscess of buttock Status: Acute Assessment and Plan: Improving. Continue local wound care with 1/4 iodoform packing daily. Will not have to continue packing once discharged home and can just apply gauze dressing daily as this heals. (2) Diabetic ketoacidosis: Code(s): E11.10 - Type 2 diabetes mellitus with ketoacidosis without coma Status: Acute Assessment and Plan: Off insulin drip, gap closed. Transferred to medical floor today. Management per Hospitalist. Additional Plan I have discussed the plan of care with Dr. Duffy. Subjective Subjective Date/Time Seen: 09/10/21 11:17 Post Op day: 2 (I&D left buttock abscess) Patient reports: no new complaints, flatus, bowel movement and afebrile Interval history: Patient seen and examined on the medical floor today. She denies any buttock pain. Reports BM without any discomfort. Tolerating a diet. No other complaints. Review of Systems Review of Systems: All systems reviewed & are unremarkable except as noted in HPI and below Constitutional: Constitutional: Reports no additional constitutional complaints, Denies chills and Denies fever(s) Exam Const: General: comfortable, alert and awake Orientation/consciousness: patient oriented x3 Skin: Other: Removed dressing from left gluteal abscess, no purulent drainage, induration improved. Neuro: General: moves all extremities and no focal motor deficits Extrem: General: normal to inspection and no edema Psych: Appearance: grossly normal Mental Status: mental status grossly normal Objective Data Vital Signs Vital Signs: Vital Signs - 24 hr 09/09/21 17:38 09/09/21 21:12 09/10/21 05:04 Temperature 98.5 F 99.0 F 98.5 F Pulse Rate 109 H 93 84 Respiratory Rate 16 16 12 Blood Pressure 124/77 135/87 140/80 Pulse Oximetry 99 100 100 09/10/21 08:00 Temperature 98.6 F Pulse Rate 86 Respiratory Rate 18 Blood Pressure 123/75 Pulse Oximetry 100 Intake/Output Intake/Output: Intake & Output 09/07/21 09/08/21 09/09/21 09/10/21 23:59 23:59 23:59 23:59 Intake Total 4979 4581 4520 500 Output Total 3700 4600 2800 600 Balance 1263 -19 1720 -100 Meds/Results Medications: Active Medications Generic Name Dose Route Start Last Admin Trade Name Freq PRN Reason Stop Dose Admin Atorvastatin Calcium 10 mg 09/09/21 10:10 09/10/21 09:15 Atorvastatin 10 Mg Tablet PO 10 mg DAILY DOMINIQUE Administration Dextrose 12.5 gm 09/05/21 07:25 09/07/21 16:46 Dextrose 50% 25 Gm/50 Ml Syringe IV PUSH 12.5 gm PRN PRN Administration Hypoglycemia Protocol Enoxaparin Sodium 40 mg 09/06/21 09:00 09/10/21 09:16 Enoxaparin 40 Mg/0.4 Ml Syringe SUB-Q 40 mg DAILY DOMINIQUE Administration Glucagon 1 mg 09/05/21 07:25 Glucagon For Inj 1 Mg Vial IM PRN PRN Hypoglycemia Protocol Glucose 15 gm 09/05/21 07:25 Glucose Oral Gel 15 Gm Of Glucse In 37.5 Gm Tube PO PRN PRN Hypoglycemia Protocol Hydromorphone HCl 0.5 mg 09/05/21 08:58 09/06/21 08:16 Hydromorphone Hcl Inj (*Crx) 1 Mg/Ml Syr IV PUSH 0.5 mg Q4H PRN Administration Pain Rated 7-10 Vancomycin HCl 1,500 mg in 500 mls @ 333.333 mls/hr 09/10/21 12:00 Vancomycin 1,500 Mg/D5w 500 Ml IVPB Q18H DOMINIQUE Dextrose 1,000 mls @ 100 mls/hr 09/05/21 07:25 Dextrose 5% 1,000 Ml IVPB PRN PRN Hypoglycemia Protocol Piperacillin/Tazobactam/Dextrose 3.375 gm in 50 mls @ 100 mls/hr 09/05/21 13:00 09/10/21 12:13 Zosyn 3.375 Gm/D5w 50ml Pm IVPB 100 mls/hr Q6HR DOMINIQUE Administration Insulin Aspart 4 - 8 units 09/09/21 08:00 09/10/21 12:10 Insulin Aspart (*Bkc) 100 Units/Ml SUB-Q 5 units TIDWM DOMINIQUE Administration Protocol Insulin Human Isoph/Insulin Regular 33 units 09/09/21 17:00 09/10/21 09:16 Insulin Human Isophan/Regular 70/30 (*Bkc) 100 Un
[2021-09-10 14:00] VITALS: BP 182/90; PULSE 107; RESP 20; TEMP 36.8; O2SAT 100
[2021-09-10 16:50] LABS: Glucose Point of Care 356 mg/dl (65-105)
[2021-09-10 21:54] VITALS: BP 180/100; PULSE 87; RESP 18; TEMP 36.4; O2SAT 100
[2021-09-10 23:57] LABS: Glucose Point of Care 239 mg/dl (65-105)
[2021-09-11 06:00] VITALS: BP 140/90; PULSE 85; RESP 18; TEMP 36.6; O2SAT 100
[2021-09-11 06:25] LABS: Hematocrit 32.8 % (37.0-47.0); Hemoglobin 11.1 g/dL (12.0-15.0); Mean Corpuscular HGB Conc 33.8 g/dl (32-36); Mean Corpuscular Hemoglobin 28.2 pg (26-34); Mean Corpuscular Volume 83.2 fl (80-100); Mean Platelet Volume 10.6 fl (7.4-10.4); Platelet Count Result 403 k/mm3 (150-375); Red Blood Count 3.94 M/mm3 (4.2-5.4); Red Cell Distribution Width 13.5 % (11.5-14.5); White Blood Count 8.3 K/mm3 (4.5-10.0)
[2021-09-11 06:51] LABS: Magnesium 1.8 mg/dL (1.6-2.3); Phosphorus 4.3 mg/dL (2.5-4.5)
[2021-09-11 08:53] LABS: Glucose Point of Care 119 mg/dl (65-105)
[2021-09-11] MEDS: INSULIN HUMAN ISOPHAN/REGULAR 70/30 (*BKC) 100 UNITS/ML 33 UNITS SUB-Q ×2 (10:10→17:14)
[2021-09-11 10:11] VITALS: O2SAT 97
[2021-09-11] MEDS: lisinopriL 20 MG TABLET PO (10:11)
[2021-09-11] MEDS: ENOXAPARIN 40 MG/0.4 ML SYRINGE SUB-Q (10:11)
[2021-09-11] MEDS: ATORVASTATIN 10 MG TABLET PO (10:12)
[2021-09-11 11:40] LABS: Glucose Point of Care 252 mg/dl (65-105)
--- NOTE | 2021-09-11 11:52 | PC.NURSE ---
On 09/11/21, the student, Li Ni, provided care and completed [facility] documentation on this patient. I have reviewed the student's documentation and agree with the findings.
--- NOTE | 2021-09-11 12:09 | PM.IMPN ---
Progress Note: A&P Assessment and Plan (1) Diabetic ketoacidosis: Code(s): E11.10 - Type 2 diabetes mellitus with ketoacidosis without coma Status: Acute (2) Type 1 diabetes mellitus: Code(s): E10.9 - Type 1 diabetes mellitus without complications Status: Acute (3) Hypertension: Code(s): I10 - Essential (primary) hypertension Status: Acute (4) Acute kidney injury: Code(s): N17.9 - Acute kidney failure, unspecified Status: Acute (5) Sepsis: Code(s): A41.9 - Sepsis, unspecified organism Status: Acute (6) Gluteal abscess: Code(s): L02.31 - Cutaneous abscess of buttock Status: Acute Assessment and Plan: Improving. Continue local wound care with 1/4 iodoform packing daily. Will not have to continue packing once discharged home and can just apply gauze dressing daily as this heals. Additional Plan DKA secondary to acute infectious process (gluteal abscess with sepsis) Transferred to general medical floor, Patient is stable at this time Continue IV antibiotics Wound care per surgery recommendations Monitor vital signs continue insulin sq SCDs anticipate dc home in a couple of days Time Spent With Patient Time with patient: 25 - 35 minutes Subjective Date/time seen: 09/11/21 12:09 Patient doing okay DKA has resolved she has moved out of the ICU. Patient states that she has had diabetes for approximately 20 years is 1st time she has been hospitalized with diabetic associated pathology such as DKA. She is very compliant with her medication and reports that her diabetes is usually well controlled. Exam Narrative: GEN: NAD, AAOx3, cooperative, obese HEENT: NCAT, MMM, EOMI Neck: no JVD Heart: S1S2 RRR Lungs: No use of accessory muscles, symmetric chest rise, clear to auscultation Abd: soft, NT, ND, bowel sounds normoactive Ext: moves all, no cyanosis, no clubbing, no edema Neuro: Cranial nerves intact no focal neurological deficits appreciated Psych: Mood and affect congruent Objective Data Vital Signs Vital Signs: Vital Signs - 24 hr 09/10/21 14:00 09/10/21 21:54 09/11/21 06:00 Temperature 98.2 F 97.6 F 97.8 F Pulse Rate 107 H 87 85 Respiratory Rate 20 18 18 Blood Pressure 182/90 H 180/100 H 140/90 Pulse Oximetry 100 100 100 09/11/21 10:11 Temperature Pulse Rate Respiratory Rate Blood Pressure Pulse Oximetry 97 Intake/Output Intake/Output: Intake & Output 09/08/21 09/09/21 09/10/21 09/11/21 23:59 23:59 23:59 23:59 Intake Total 4581 4520 2110 1000 Output Total 4600 2800 600 Balance -19 1720 1510 1000 Meds/Results Medications: Active Medications Generic Name Dose Route Start Last Admin Trade Name Freq PRN Reason Stop Dose Admin Atorvastatin Calcium 10 mg 09/09/21 10:10 09/11/21 10:12 Atorvastatin 10 Mg Tablet PO 10 mg DAILY DOMINIQUE Administration Dextrose 12.5 gm 09/05/21 07:25 09/07/21 16:46 Dextrose 50% 25 Gm/50 Ml Syringe IV PUSH 12.5 gm PRN PRN Administration Hypoglycemia Protocol Enoxaparin Sodium 40 mg 09/06/21 09:00 09/11/21 10:11 Enoxaparin 40 Mg/0.4 Ml Syringe SUB-Q 40 mg DAILY DOMINIQUE Administration Glucagon 1 mg 09/05/21 07:25 Glucagon For Inj 1 Mg Vial IM PRN PRN Hypoglycemia Protocol Glucose 15 gm 09/05/21 07:25 Glucose Oral Gel 15 Gm Of Glucse In 37.5 Gm Tube PO PRN PRN Hypoglycemia Protocol Hydromorphone HCl 0.5 mg 09/05/21 08:58 09/06/21 08:16 Hydromorphone Hcl Inj (*Crx) 1 Mg/Ml Syr IV PUSH 0.5 mg Q4H PRN Administration Pain Rated 7-10 Vancomycin HCl 1,500 mg in 500 mls @ 333.333 mls/hr 09/10/21 12:00 09/11/21 06:48 Vancomycin 1,500 Mg/D5w 500 Ml IVPB 333.3 mls/hr Q18H DOMINIQUE Administration Dextrose 1,000 mls @ 100 mls/hr 09/05/21 07:25 Dextrose 5% 1,000 Ml IVPB PRN PRN Hypoglycemia Protocol Piperacillin/Tazobactam/Dextrose 3.375 gm in 50 mls
--- NOTE | 2021-09-11 12:21 | PM.PNGS ---
Progress Note: A&P Assessment and Plan (1) Gluteal abscess: Code(s): L02.31 - Cutaneous abscess of buttock Status: Acute Assessment and Plan: local wound care, abx, ok to dc from surgical standpoint Subjective Subjective Date/Time Seen: 09/11/21 12:21 feels ok, no buttock pain Review of Systems Review of Systems: All systems reviewed & are unremarkable except as noted in HPI and below Exam Const: General: cooperative, comfortable, no acute distress and ill appearing Nutritional Appearance: obese Resp: Auscultation: clear to auscultation bilaterally Cardio: Rate: regular rate Rhythm: regular rhythm GI: Inspection: normal to inspection GI Palp: Yes Soft to palpation and No Tenderness to palpation present (GI) Skin: Other: L buttock abscess - good drainage, packing removed, no TTP, mild induration Objective Data Vital Signs Vital Signs: Vital Signs - 24 hr 09/10/21 14:00 09/10/21 21:54 09/11/21 06:00 Temperature 36.8 C 36.4 C 36.6 C Pulse Rate 107 H 87 85 Respiratory Rate 20 18 18 Blood Pressure 182/90 H 180/100 H 140/90 Pulse Oximetry 100 100 100 09/11/21 10:11 Temperature Pulse Rate Respiratory Rate Blood Pressure Pulse Oximetry 97 Intake/Output Intake/Output: Intake & Output 09/08/21 09/09/21 09/10/21 09/11/21 23:59 23:59 23:59 23:59 Intake Total 4581 4520 2110 1000 Output Total 4600 2800 600 Balance -19 1720 1510 1000 Meds/Results Medications: Active Medications Generic Name Dose Route Start Last Admin Trade Name Freq PRN Reason Stop Dose Admin Atorvastatin Calcium 10 mg 09/09/21 10:10 09/11/21 10:12 Atorvastatin 10 Mg Tablet PO 10 mg DAILY DOMINIQUE Administration Dextrose 12.5 gm 09/05/21 07:25 09/07/21 16:46 Dextrose 50% 25 Gm/50 Ml Syringe IV PUSH 12.5 gm PRN PRN Administration Hypoglycemia Protocol Enoxaparin Sodium 40 mg 09/06/21 09:00 09/11/21 10:11 Enoxaparin 40 Mg/0.4 Ml Syringe SUB-Q 40 mg DAILY DOMINIQUE Administration Glucagon 1 mg 09/05/21 07:25 Glucagon For Inj 1 Mg Vial IM PRN PRN Hypoglycemia Protocol Glucose 15 gm 09/05/21 07:25 Glucose Oral Gel 15 Gm Of Glucse In 37.5 Gm Tube PO PRN PRN Hypoglycemia Protocol Hydromorphone HCl 0.5 mg 09/05/21 08:58 09/06/21 08:16 Hydromorphone Hcl Inj (*Crx) 1 Mg/Ml Syr IV PUSH 0.5 mg Q4H PRN Administration Pain Rated 7-10 Vancomycin HCl 1,500 mg in 500 mls @ 333.333 mls/hr 09/10/21 12:00 09/11/21 06:48 Vancomycin 1,500 Mg/D5w 500 Ml IVPB 333.3 mls/hr Q18H DOMINIQUE Administration Dextrose 1,000 mls @ 100 mls/hr 09/05/21 07:25 Dextrose 5% 1,000 Ml IVPB PRN PRN Hypoglycemia Protocol Piperacillin/Tazobactam/Dextrose 3.375 gm in 50 mls @ 100 mls/hr 09/05/21 13:00 09/11/21 06:11 Zosyn 3.375 Gm/D5w 50ml Pm IVPB Infused Q6HR DOMINIQUE Infusion Insulin Aspart 4 - 8 units 09/09/21 08:00 09/11/21 10:29 Insulin Aspart (*Bkc) 100 Units/Ml SUB-Q Not Given TIDWM ON LICENSE OF [facility] Protocol Insulin Human Isoph/Insulin Regular 33 units 09/09/21 17:00 09/11/21 10:10 Insulin Human Isophan/Regular 70/30 (*Bkc) 100 Units/Ml SUB-Q 33 units BID DOMINIQUE Administration Lisinopril 20 mg 09/09/21 10:10 09/11/21 10:11 Lisinopril 20 Mg Tablet PO 20 mg DAILY DOMINIQUE Administration Ondansetron HCl 4 mg 09/05/21 08:58 Ondansetron Inj 4 Mg/2 Ml Vial IV PUSH Q4H PRN Nausea Radiology Results: ITS Impressions Chest X-Ray 09/05/21 07:38 IMPRESSION: No acute cardiopulmonary findings. Chest/Abdomen/Pelvis CTA 09/05/21 09:00 IMPRESSION: No apparent central pulmonary embolism; limited evaluation of the pulmonary arteries due to superimposed upper extremities and motion artifact Medial left gluteal abscess Patchy contrast enhancement of both kidneys suggesting possible bilateral pyelonephritis; recommend clinical correlation 3 cm right ovarian cyst Normal appendix
[2021-09-11] MEDS: INSULIN ASPART (*BKC) 100 UNITS/ML SUB-Q ×2 (13:15→17:15)
[2021-09-11 14:00] VITALS: BP 130/90; PULSE 88; RESP 18; TEMP 36.4; O2SAT 100
[2021-09-11 16:39] LABS: Glucose Point of Care 211 mg/dl (65-105)
[2021-09-11 21:36] LABS: Glucose Point of Care 144 mg/dl (65-105)
[2021-09-11 22:00] VITALS: BP 150/90; PULSE 80; RESP 18; TEMP 36.5; O2SAT 100
[2021-09-12 00:30] LABS: Glucose Point of Care 102 mg/dl (65-105)
[2021-09-12 00:30] LABS: Glucose Point of Care 50 mg/dl (65-105)
--- NOTE | 2021-09-12 00:31 | PC.NURSE ---
patient asked me to check her blood sugar because it felt low. BG at 50.. gave two apple juices and it was above 100 at 15 min recheck
[2021-09-12 06:00] VITALS: BP 140/80; PULSE 89; RESP 16; TEMP 36.1; O2SAT 99
[2021-09-12 08:28] LABS: Glucose Point of Care 146 mg/dl (65-105)
[2021-09-12 09:00] LABS: Basophils Percent Auto 0.5 % (0.2-1.2); Eosinophils Absolute Auto 0.2 K/mm3 (0-0.3); Hematocrit 30.7 % (37.0-47.0); Hemoglobin 10.2 g/dL (12.0-15.0); Immature Granulocyte Absolute 0.05 K/mm3 (0.00-0.031); Immature Granulocyte Percent A 0.8 % (0-0.5); Lymphocytes Absolute Auto 1.49 K/mm3 (0.9-3.2); Lymphocytes Percent Auto 24.9 % (18.3-44.2); Mean Corpuscular HGB Conc 33.2 g/dl (32-36); Mean Corpuscular Hemoglobin 27.7 pg (26-34); Mean Corpuscular Volume 83.4 fl (80-100); Mean Platelet Volume 10.5 fl (7.4-10.4); Monocytes Absolute Auto 0.7 K/mm3 (0.1-0.6); Monocytes Percent Auto 12.2 % (2.6-8.5); Neutrophils Absolute Auto 3.5 K/mm3 (1.3-6.7); Neutrophils Percent Auto 58.6 % (45.5-73.1); Platelet Count Result 365 k/mm3 (150-375); Red Blood Count 3.68 M/mm3 (4.2-5.4); Red Cell Distribution Width 13.6 % (11.5-14.5)
[2021-09-12 09:14] LABS: Anion Gap 7 mmol/L (8-16); Blood Urea Nitrogen 5 mg/dL (7-17); Calcium 8.5 mg/dL (8.4-10.2); Carbon Dioxide 31 mmol/L (22-30); Chloride 102 mmol/L (98-107); Estimated CRCL calculation 112 ml/min; Estimated Glomerular Filt Rate > 60; Glucose 160 mg/dL (65-110); Magnesium 1.8 mg/dL (1.6-2.3); Potassium 3.3 mmol/L (3.4-5.0); Sodium 140 mmol/L (137-145)
[2021-09-12] MEDS: INSULIN HUMAN ISOPHAN/REGULAR 70/30 (*BKC) 100 UNITS/ML 33 UNITS SUB-Q (09:53)
[2021-09-12] MEDS: ENOXAPARIN 40 MG/0.4 ML SYRINGE SUB-Q (09:56)
[2021-09-12] MEDS: lisinopriL 20 MG TABLET PO (09:56)
[2021-09-12] MEDS: ATORVASTATIN 10 MG TABLET PO (09:57)
--- NOTE | 2021-09-12 11:45 | PM.DS ---
DS: Admitting Diagnosis Discharge Date 09/12/21 Admitting Diagnosis Diabetic ketoacidosis Type 1 diabetes mellitus Hypertension Gluteal abscess Sepsis Acute kidney injury DS: Discharge Diagnosis Discharge Diagnosis (1) Diabetic ketoacidosis: Code(s): E11.10 - Type 2 diabetes mellitus with ketoacidosis without coma Status: Acute Assessment and Plan: She was initially admitted to ICU. She was treated with insulin drip and IV fluids. She was profoundly acidotic on ABG with her anion gap being 30 at the time of presentation. Her anion gap closed. She was transitioned to basal bolus insulin. She claims that her blood sugar are usually very well controlled and never had any issues with DKA in the past. Her hemoglobin A1c was 10.9. (2) Type 1 diabetes mellitus: Code(s): E10.9 - Type 1 diabetes mellitus without complications Status: Acute (3) Hypertension: Code(s): I10 - Essential (primary) hypertension Status: Acute Assessment and Plan: She takes lisinopril at her baseline which was put on hold at the time of presentation because of acute kidney injury but now that has been resumed. Blood pressure remained within acceptable range except with few readings which were elevated. (4) Acute kidney injury: Code(s): N17.9 - Acute kidney failure, unspecified Status: Acute Assessment and Plan: She had acute kidney injury which improved with IV fluids resuscitation. (5) Sepsis: Code(s): A41.9 - Sepsis, unspecified organism Status: Acute Assessment and Plan: Tachycardic, tachypneic, elevated WBC count with left gluteal abscess as a source of infection She was continued vancomycin and Zosyn which were initiated on 09/05/2020. She will be now transitioned to p.o. Bactrim DS for further 10 days. 09/05/2021: Blood cultures negative x2 WBC count is normalized (6) Gluteal abscess: Code(s): L02.31 - Cutaneous abscess of buttock Status: Acute Assessment and Plan: She was started on Zosyn and vancomycin which has been continued until the time of discharge. She will be now transitioned to p.o. Bactrim DS at the time of discharge for further 10 days. Her blood cultures remain negative. She underwent incision and drainage on 09/08 by surgery service in OR. She had complex left buttock abscess which was 8x9x3 cm in size. 300-400 follow smelling purulent discharge was drained. Cultures from the wound at the time of incision and drainage were not sent. Surgery service continued to follow her. She will see surgeon at her office in 1-2 weeks for wound check. Continue local wound care with 1/4 iodoform packing daily. Will not have to continue packing once discharged home and can just apply gauze dressing daily as this heals. DS: Summary Hospital Course Hospital Course: As above Time Spent with Patient Time attestation: Total time spent providing and/or coordinating discharge services: Exam Narrative: GEN: NAD, AAOx3, cooperative, obese HEENT: NCAT, MMM, EOMI Neck: no JVD Heart: S1S2 RRR Lungs: No use of accessory muscles, symmetric chest rise, clear to auscultation Abd: soft, NT, ND, bowel sounds normoactive Ext: moves all, no cyanosis, no clubbing, no edema Neuro: Cranial nerves intact no focal neurological deficits appreciated Psych: Mood and affect congruent DS: Data Data Completed and Pending Labs on day of discharge: Labs from last 24 hours 09/12/21 09/12/21 09/12/21 08:25 08:25 08:21 WBC 6.0 RBC 3.68 L Hgb 10.2 L Hct 30.7 L MCV 83.4 MCH 27.7 MCHC 33.2 RDW 13.6 Plt Count 365 MPV 10.5 H Immature Gran % (Auto) 0.8 H Neut % (Auto) 58.6 Lymph % (Auto) 24.9 [place] % (Auto) 12.2 H Eos % (Auto) 3.0 Baso % (Auto) 0.5 Lymph # (Auto) 1.49 [place] # (Auto) 0.7 H Eos # (Auto) 0.2 Baso # (Auto) 0.0 Abs Immat Gran (auto) 0.05 H Absolute Neuts (auto
[2021-09-12 12:04] LABS: Glucose Point of Care 243 mg/dl (65-105)
[2021-09-12] MEDS: POTASSIUM CHLORIDE 20 MEQ TABLET 40 MEQ PO (12:15)
[2021-09-12] MEDS: INSULIN ASPART (*BKC) 100 UNITS/ML SUB-Q (12:15)
--- NOTE | 2021-12-08 03:59 | PM.IMPN ---
Progress Note: A&P Additional Plan dka resolved s/p I&D of gluteal abscess progressing well Time Spent With Patient Time with patient: less than 15 minutes Subjective Date/time seen: 12/08/21 03:59 reasting comfortably no acute compleints Review of Systems Review of Systems: All systems reviewed & are unremarkable except as noted in HPI and below Exam Const: General: no acute distress Neck: Neck: no JVD Resp: Effort & Inspection: normal respiratory effort Auscultation: clear to auscultation bilaterally Cardio: Rate: regular rate Rhythm: regular rhythm GI: Inspection: non-distended Auscultation: normal bowel sounds Objective Data Meds/Results Radiology Results: ITS Impressions Chest X-Ray 09/05/21 07:38 IMPRESSION: No acute cardiopulmonary findings. Chest/Abdomen/Pelvis CTA 09/05/21 09:00 IMPRESSION: No apparent central pulmonary embolism; limited evaluation of the pulmonary arteries due to superimposed upper extremities and motion artifact Medial left gluteal abscess Patchy contrast enhancement of both kidneys suggesting possible bilateral pyelonephritis; recommend clinical correlation 3 cm right ovarian cyst Normal appendix Chest/Abdomen/Pelvis CT 09/07/21 11:23 IMPRESSION: 1. Persistent left medial gluteal abscess measuring 7.7 x 2.7 x 8.6 cm. 2: Heterogeneous appearance to both kidneys, suspicious for pyelonephritis P Quality VTE Prophylaxis VTE prophylaxis: pharmacologic ordered
== END 2021-09-12 14:00 | disposition home or self-care (01) | DRG 720 ==
LOC: ANHED 09:02 → ANHICU 14:15 → ANH3MEDSUR 09-12 10:18 → ANHICU 09-13 12:16
PROVIDERS: Hospitalist; Internal Medicine; Physician Assistant; Surgery; Admitting Provider Internal Medicine; Emergency Provider Emergency Medicine; Visit Provider Internal Medicine
PROC: 0J993ZZ Drainage of Buttock Subcutaneous Tissue and Fascia, Percutaneous Approach (ICD-10-PCS; CPT 46040; principal; 2021-09-08 07:30)
DX: A41.9 Sepsis, unspecified organism (principal); E11.10 Type 2 diabetes mellitus with ketoacidosis without coma; L02.31 Cutaneous abscess of buttock; D72.829 Elevated white blood cell count, unspecified; N17.9 Acute kidney failure, unspecified; Z79.4 Long term (current) use of insulin; E66.9 Obesity, unspecified; Z68.34 Body mass index [BMI] 34.0-34.9, adult
CPT/HCPCS: 36415; 36600; 71045; 71250; 71275; 74176; 74177; 80048; 80053; 80202; 81001; 81025; 82805; 82948; 83036; 83605; 83735; 84100; 84443; 85025; 85027; 85610; 85730; 86140; 87040; 93005; 96361; 96374; 96375; 99285; A9270; J0131; J1170; J1650; J1815; J2543; J2704; J3010; J3370; J3475; J3480; J7030; J7050; J7120; Q9967